=== PATIENT | male | born 1965 | race Caucasian/White ===

== ENCOUNTER 2020-02-20 09:54 | Inpatient (IN) | payer BC, SELFPAY ==
[2020-02-20] VITALS (7 sets, daily range): BP systolic 121–151; BP diastolic 81–110; PULSE 72–105; RESP 18–29; TEMP 36.1–37.2; O2SAT 94–99
--- NOTE | ~2020-02-20 | CT_ITS ---
EXAMINATION: CTA chest PE protocol DATE: 02/20/2020 12:16 CDT INDICATION: Shortness of breath. Pneumonia. TECHNIQUE: Computed tomographic angiography (CTA) of the chest was performed with 100 mL Omnipaque-35 0 intravenous contrast. The dose-length product was 583.93 mGy-cm. Maximum intensity projection 3D-re constructions of the aorta and other arteries were constructed by the technologist on a separate work station. Automated exposure control and iterative reconstruction technique were employed. COMPARISON: Chest x-ray dated 02/20/2020. FINDINGS: The study is technically adequate without evidence for pulmonary embolism. Calcified right hilar lymph nodes, consistent with chronic granulomatous infection. Heart size normal. No pleural or pericardial effusion. Borderline prevascular space lymph nodes measuring 7 mm short axis. Calcified g ranulomas in the lung parenchyma. Multifocal patchy groundglass opacification involving all lobes, compatible with pneumonia. The areas of opacification are not definitely seen on chest x-ray. No endobronchial lesions. IMPRESSION: 1. Multifocal regions of groundglass opacification in both lungs, compatible with pneumonia. 2: No evidence for pulmonary embolism. Reviewed, dictated and finalized at location B. IMPRESSION: 1. Multifocal regions of groundglass opacification in both lungs, compatible wi th pneumonia. 2: No evidence for pulmonary embolism.
--- NOTE | ~2020-02-20 | XR_ITS ---
XR chest 1V portable 02/20/2020 10:39 Indication: Shortness of breath and cough Procedure: AP portable chest Comparison: No prior studies for comparison. Findings: Heart size normal. Left basilar atelectasis. Crowding of the pulmonary vasculature due to l ow lung volumes. No pleural effusion, edema or pneumothorax. Impression: 1: Left basilar atelectasis. Reviewed, dictated and finalized at location B. Impression: 1: Left basilar atelectasis.
--- NOTE | 2020-02-20 10:02 | ED.GENADULT ---
HPI - General Adult General Chief complaint: Shortness of Breath/Dyspnea <MYRIAM Barreto - Last Filed: 02/20/20 13:25> Stated complaint: Covid +, SOB <MYRIAM Barreto - Last Filed: 02/20/20 13:25> Time Seen by Provider: 02/20/20 10:02 <MYRIAM Barreto - Last Filed: 02/20/20 13:25> Source: patient <MYRIAM Barreto - Last Filed: 02/20/20 13:25> Mode of arrival: ambulatory <MYRIAM Barreto - Last Filed: 02/20/20 13:25> Limitations: no limitations <MYRIAM Barreto - Last Filed: 02/20/20 13:25> History of Present Illness HPI narrative: 55-year-old male patient presents to the emergency department with complaints of shortness of breath and cough. Patient states that he had an exposure on February 01 after throwing a republican for his sons going away. Patient states about 14 people were tested and he tested positive the first time on February 05 for COVID-19. Patient states his symptoms started about February 10 with fever. Patient states he got tested again on February 13 and was positive again. Patient states he did not run any fever yesterday which was the first day he did not run any fever. Patient states he continues to have shortness of breath and a cough. Denies any abdominal pain. Patient states that when his symptoms first began February 10 he thought it might be diverticulitis and called his doctor and he was placed on antibiotics. Patient unknown of what the antibiotic was. Patient does have history of TIA and hypercholesterolemia. Patient states he takes a daily 81 mg baby aspirin for this. <MYRIAM Barreto - Last Filed: 02/20/20 13:25> Related Data Allergies/adverse reactions: Allergies Allergy/AdvReac Type Severity Reaction Status Date / Time No Known Allergies Allergy Unverified 10/27/13 10:50 <MYRIAM Barreto - Last Filed: 02/20/20 13:25> Review of Systems Review of Systems: Narrative: CONSTITUTIONAL: Denies fever, chills, positive sweats. EYES: Denies visual changes, redness, or discharge. ENT: Denies rhinorrhea, congestion, sore throat, or otalgia. CARDIOVASCULAR: Denies chest pain, palpitations, or edema. RESPIRATORY: Positive cough with dyspnea. GASTROINTESTINAL: Denies abdominal pain, nausea, vomiting, or diarrhea. GENITOURINARY: Denies dysuria or hematuria. SKIN: Denies rash or itching. MUSCULOSKELETAL: Denies back pain, joint pain, or myalgia. NEUROLOGIC: Denies headache, numbness, or weakness. PSYCHIATRIC: Denies anxiety or depression. <MYRIAM Barreto - Last Filed: 02/20/20 13:25> [facility] Past Medical History Medical History: Medical History (Updated 02/20/20 @ 12:58 by MYRIAM Barreto) CVA (cerebral vascular accident) 2016 Hypercholesterolemia <MYRIAM Barreto - Last Filed: 02/20/20 13:25> Social History Social History: Social History Smoking status: Never smoker Alcohol intake: current Gender identity (if verbalized by the patient): Male <MYRIAM Barreto - Last Filed: 02/20/20 13:25> Comments At the time of my signature I agree with nursing past medical history, surgical, social, and family history. There is no relevant family history pertinent to the presenting complaint. <MYRIAM Barreto - Last Filed: 02/20/20 13:25> Exam Narrative: Exam Narrative: GENERAL: Well-appearing, well-nourished, and in no acute distress. HEAD: Normocephalic, atraumatic. No tenderness noted to frontal maxillary sinuses on palpation EYES: PERRLA and EOMI. ENT: Nares clear, no rhinorrhea or epistaxis. Mucous membranes moist. NECK: Supple. No lymphadenopathy CHEST: Clear to auscultation. Patient does have slightly labored breathing but is also crying during exam. Patient does have cough noted during exam, nonproductive HEART: Regular rate and rhythm. No murmur heard. Normal peripheral pulses. ABDOMEN: Soft, nontender, nondistended, normal active bow
--- NOTE | 2020-02-20 10:04 | ECG_ITS ---
Measurements Intervals [place] Rate: 93 P: 36 UT: 143 QRS: 12 QRSD: 92 T: -15 QT: 331 QTc: 412 Interpretive Statements SINUS RHYTHM NONSPECIFIC ST-T WAVE ABNORMALITY- DIFFUSE LEADS BORDERLINE ECG Electronically Signed On 02-20-2020 12:11:46 CDT by Mike Ivory D.O.
[2020-02-20 10:33] LABS: Alveolar/Arterial O2 Gradient 81.2 mmHg; Base Excess ABG -1.9 mEq/l (+/-2.0); Fractional Inspired Oxygen 28 %; HCO3 ABG 19.3 mEq/l (22.0-26.0); Oxygen Content ABG 20.7 %vol (16.0-22.0); Oxygen Saturation ABG 97.6 % (95.0-100.0); Oxyhemoglobin 95.5 % THb (90.0-100.0); PO2 ABG 88.9 mmHg (80.0-100.0); PO2 FiO2 Ratio Arterial Blood 3.17 %; Total Hemoglobin 15.4 g/dL (12.0-18.0); pH ABG 7.505 (7.350-7.450)
[2020-02-20 10:34] LABS: Device NASAL CANNULA; Site Drawn RIGHT BRACHIAL
[2020-02-20 11:07] LABS: Basophils Percent Auto 0.2 % (0.2-1.2); Eosinophils Percent Auto 0.4 % (0-4.4); Hematocrit 43.5 % (42.0-52.0); Hemoglobin 14.8 g/dL (14.0-18.0); Immature Granulocyte Absolute 0.18 K/mm3 (0.00-0.031); Immature Granulocyte Percent A 1.9 % (0-0.5); Lymphocytes Absolute Auto 1.33 K/mm3 (0.9-3.2); Lymphocytes Percent Auto 14.1 % (18.3-44.2); Mean Corpuscular Volume 85.3 fl (80-100); Mean Platelet Volume 10.6 fl (7.4-10.4); Monocytes Absolute Auto 0.8 K/mm3 (0.1-0.6); Monocytes Percent Auto 8.9 % (2.6-8.5); Neutrophils Absolute Auto 7.1 K/mm3 (1.3-6.7); Neutrophils Percent Auto 74.5 % (45.5-73.1); Platelet Count Result 285 k/mm3 (150-375); Red Cell Distribution Width 13.4 % (11.5-14.5); White Blood Count 9.5 K/mm3 (4.5-10.0)
[2020-02-20 11:15] LABS: INR 1.1
[2020-02-20 11:16] LABS: Partial Thromboplastin Time 24.7 SECONDS (22.3-36.8)
[2020-02-20 11:18] LABS: D Dimer 1.36 ug/mL (<0.48)
[2020-02-20 11:19] LABS: Alanine Aminotransferase 20 U/L (4-50); Albumin Level 3.8 g/dL (3.5-5.1); Alkaline Phosphatase 116 U/L (38-126); Aspartate Amino Transferase 43 U/L (17-59); Bilirubin,Total 0.3 mg/dL (0.2-1.3); Blood Urea Nitrogen 23 mg/dL (9-20); Calcium 8.3 mg/dL (8.4-10.2); Carbon Dioxide 23 mmol/L (22-30); Chloride 103 mmol/L (98-107); Estimated CRCL calculation 79 ml/min; Estimated Glomerular Filt Rate > 60; Glucose 143 mg/dL (75-110); Potassium 3.3 mmol/L (3.4-5.0); Sodium 137 mmol/L (137-145)
[2020-02-20 11:20] LABS: Magnesium 2.7 mg/dL (1.6-2.3)
[2020-02-20 11:32] LABS: Troponin I < 0.012 ng/mL (0.000-0.034)
--- NOTE | 2020-02-20 12:10 | PC.NURSE ---
Right AC IV infiltrated at CT scan. IV removed by radiology technicians and new IV placed in Left AC
[2020-02-20 13:11] LABS: Add Urine Microscopic? YES; Appearance Urine Clear (Clear); Bacteria Urine Trace /hpf; Bilirubin Urine Negative (Negative); Blood Urine 1+ (Negative); Color Urine Yellow (Yellow); Glucose Urine UA Negative (Negative); Ketones Urine Negative (Negative); Leukocyte Esterase Ur Negative LEU/UL (Negative); Mucus Urine Rare /lpf; Nitrate Urine Negative (Negative); Protein Urine 1+ mg/dL (Negative); RBC Urine 0-2 /hpf (0-2); Squamous Epithelial Cell Urine Rare /hpf (Few); Urobilinogen Urine Negative mg/dL (<2.0)
[2020-02-20 13:14] LABS: Specific Grav Ur 1.039 (1.001-1.035)
[2020-02-20 13:24] LABS: CRP 7.7 mg/dL (<1.0)
--- NOTE | 2020-02-20 14:00 | PM.IMHP ---
H&P: HPI History of Present Illness Chief complaint: Shortness of breath. Narrative: Cole Nur is a 55-year-old male with history of stroke and hyperlipidemia presented to the emergency department earlier today from home with complaints of shortness of breath. He attended a going away libertarian for his son on February 01 and several days letter he was told that a person at the libertarian had tested positive for COVID-19. Since that time he and his have been in quarantine, and he was tested on February 05 although he was having no symptoms at that time. He began feeling poorly on February 10 and notes low-grade fever up to 100.4? as well as generalized GI upset and diarrhea. Initially he thought he was having a flare of diverticulitis, and he was started on antibiotics by his primary care provider, who also ordered a repeat COVID swab on February 13, which was also positive. He continued to have GI upset and reports having a ?bad taste in my mouth? so he stopped taking the antibiotics, thinking that was the cause. More recently he has had a nagging, nonproductive cough, progressive shortness of breath, weakness, and generalized malaise. He denies headache, sinus congestion, otalgia, odynophagia, vomiting, and dysuria. Review of Systems Review of Systems: Narrative: Twelve systems were reviewed with pertinent positives and negatives as per HPI. He had an occult stroke a couple of years back with mild residual left-sided weakness. No chest pain or pleuritic pain. He denies edema. Except as documented, all other systems were reviewed and are negative. [facility] Past Medical History Medical History (Updated 02/20/20 @ 19:13 by Elicia Krishnan PA-C) Anxiety Cerebrovascular accident (~2015) With mild residual left-sided weakness. Gastroesophageal reflux Hyperlipidemia Osteoarthritis of both shoulders Surgical History Surgical History (Updated 02/20/20 @ 19:06 by Elicia Krishnan PA-C) History of tonsillectomy (~1969) Family History Family History Father Acute myocardial infarction Diabetes mellitus Mother Diabetes mellitus Sibling Diabetes mellitus Sibling Diabetes mellitus Social History Social History (Updated 02/20/20 @ 19:15 by Elicia Krishnan PA-C) Social History: The patient lives in his own home in [place]. He has grown children. He works at a local [employer]. He is a lifelong nonsmoker. He drinks perhaps 1 alcoholic beverage a week. No illicit substance use. He designates his sister, Carolyn Mathis, as his surrogate decision maker and he wishes to be a full code. Spiritual care concerns: No Meds Home Medications and Allergies Home Medications Medication Instructions Recorded Confirmed Type aspirin [Aspirin Low Dose] 81 mg PO DAILY 02/20/20 02/20/20 History cetirizine [Zyrtec] 10 mg PO DAILY PRN 02/20/20 02/20/20 History lorazepam 0.5 mg PO DAILY PRN 02/20/20 02/20/20 History rosuvastatin 20 mg PO DAILY 02/20/20 02/20/20 History Allergies Allergy/AdvReac Type Severity Reaction Status Date / Time No Known Allergies Allergy Unverified 10/27/13 10:50 Vital Signs Vital Signs - 24 hr 02/20/20 10:15 02/20/20 12:53 02/20/20 13:39 Temperature 97.0 F L 98 F Pulse Rate 72 94 100 Respiratory Rate 29 H 21 H 20 Blood Pressure 151/100 H 146/99 H 140/98 H Pulse Oximetry 98 95 99 02/20/20 16:08 Temperature 98.9 F Pulse Rate 97 Respiratory Rate 18 Blood Pressure 137/110 H Pulse Oximetry 96 Exam Narrative: Exam Narrative: General: Mildly ill-appearing male in the semi-Snyder position in bed in no distress. He is nontoxic in appearance. HEENT: Pupils reactive. Extraocular motions intact. Oral mucosa tacky. Neck: Supple. Respiratory: Mildly tachypneic but speaking in full sentences. He coughs frequently throughout the interview. Coarse breath sounds heard bilaterally with faint expiratory wheezing. Cardiovascular
[2020-02-20 17:47] LABS: CRP 7.4 mg/dL (<1.0)
[2020-02-20] MEDS: SODIUM CHLORIDE 0.9% IV 1,000 ML 125 ML IV CONT (18:21)
--- NOTE | 2020-02-20 19:55 | ADMGEN ---
This patient, Cole Nur, was admitted to 3 [facility] Surg Room 327-01. Patient/family oriented to hospital policies and general routines including ID bracelet, bed and alarms, visiting hours, pain management, procedures, bathroom and other care routines, personal items, smoking policy, room service/diet, and visiting hours. Valuables list has been completed. Information on how to activate the Rapid Response Team has been discussed. Patient/Family are encouraged to report perceived risks to care and to ask questions if they do not understand what they are told or what they should do.
[2020-02-20] MEDS: POTASSIUM CHLORIDE 20 MEQ TABLET PO (21:14)
[2020-02-20] MEDS: LORazepam 0.5 MG TABLET PO (21:14)
[2020-02-20] MEDS: DEXAMETHASONE SOD PHOS INJ 4 MG/ML VIAL 6 MG IV PUSH (21:15)
[2020-02-20] MEDS: ROSUVASTATIN 10 MG TABLET 20 MG PO (21:15)
[2020-02-20] MEDS: ASPIRIN 81 MG ENTERIC TABLET PO (21:15)
[2020-02-20 21:49] LABS: Lactate Dehydrogenase 621 U/L (313-618); Potassium 3.1 mmol/L (3.4-5.0)
[2020-02-21 02:00] VITALS: BP 120/75; PULSE 80; RESP 20; TEMP 36.6; O2SAT 98
[2020-02-21 06:00] VITALS: BP 133/89; PULSE 67; RESP 20; TEMP 36.6; O2SAT 96
[2020-02-21 06:47] LABS: Basophils Percent Auto 0.4 % (0.2-1.2); Hematocrit 40.5 % (42.0-52.0); Hemoglobin 13.8 g/dL (14.0-18.0); Lymphocytes Absolute Auto 0.98 K/mm3 (0.9-3.2); Lymphocytes Percent Auto 14.5 % (18.3-44.2); Mean Corpuscular HGB Conc 34.1 g/dl (32-36); Mean Corpuscular Hemoglobin 29.1 pg (26-34); Mean Corpuscular Volume 85.4 fl (80-100); Mean Platelet Volume 10.6 fl (7.4-10.4); Monocytes Absolute Auto 0.3 K/mm3 (0.1-0.6); Monocytes Percent Auto 3.7 % (2.6-8.5); Neutrophils Absolute Auto 5.3 K/mm3 (1.3-6.7); Neutrophils Percent Auto 78.4 % (45.5-73.1); Platelet Count Result 296 k/mm3 (150-375); Red Blood Count 4.74 M/mm3 (4.6-6.20); Red Cell Distribution Width 13.2 % (11.5-14.5); White Blood Count 6.8 K/mm3 (4.5-10.0)
[2020-02-21 07:06] LABS: Alanine Aminotransferase 21 U/L (4-50); Albumin Level 3.6 g/dL (3.5-5.1); Alkaline Phosphatase 117 U/L (38-126); Aspartate Amino Transferase 44 U/L (17-59); Bilirubin,Total 0.3 mg/dL (0.2-1.3); Blood Urea Nitrogen 20 mg/dL (9-20); CRP 7.3 mg/dL (<1.0); Calcium 8.4 mg/dL (8.4-10.2); Carbon Dioxide 23 mmol/L (22-30); Chloride 105 mmol/L (98-107); Estimated CRCL calculation 87 ml/min; Estimated Glomerular Filt Rate > 60; Glucose 175 mg/dL (75-110); Lactate Dehydrogenase 603 U/L (313-618); Potassium 4.2 mmol/L (3.4-5.0); Sodium 137 mmol/L (137-145)
[2020-02-21 07:21] LABS: Giant Platelets Present; Large Platelets Present
[2020-02-21 07:23] LABS: Platelet Estimate Adequate (Adequate)
[2020-02-21 08:00] VITALS: PULSE 71
[2020-02-21] MEDS: ENOXAPARIN 40 MG/0.4 ML SYRINGE SUB-Q (08:03)
[2020-02-21 10:00] VITALS: BP 128/78; PULSE 71; RESP 18; TEMP 36.9; O2SAT 97
[2020-02-21 12:00] VITALS: PULSE 104
[2020-02-21 14:00] VITALS: BP 127/77; PULSE 70; RESP 18; TEMP 37.1; O2SAT 98
--- NOTE | 2020-02-21 14:13 | PM.DS ---
DS: Admitting Diagnosis Admitting Diagnosis Admitting Diagnosis: Pneumonia, unspecified organism DS: Discharge Diagnosis Discharge Diagnosis (1) Multifocal pneumonia: Code(s): J18.9 - Pneumonia, unspecified organism Status: Acute Assessment and Plan: As suggested on chest CTA. Suspect his pneumonia is secondary to COVID-19. Patient shows his results of COVID positive on 02/12 for me via his cell phone. I do not believe a bacterial co-infection is present as patient is afebrile and satting mid 90s on RA. Recommend mucinex and tylenol and proper oral intake for supportive care Will discharge today F/u with PCP Continue to isolate until further recommendations from PCP discontinue antibiotics (2) COVID-19: Code(s): U07.1 - COVID-19 Status: Acute Assessment and Plan: Patient reports testing positive on February 05 and February 12, patient showed me his results via his phone. At this time he has no oxygen requirement and his inflammatory markers only mildly elevated. Will d/c dexamethasone as he is not requiring oxygen at this time F/u with PCP (3) Hypokalemia: Code(s): E87.6 - Hypokalemia Status: Acute Assessment and Plan: K 4.2, improved F/u with PCP (4) Mild dehydration: Code(s): E86.0 - Dehydration Status: Acute Assessment and Plan: Patient appears euvolemic at this time IVF given during stay (5) Hyperlipidemia: Code(s): E78.5 - Hyperlipidemia, unspecified Status: Acute Assessment and Plan: Continue statin; LFTs within normal limits. (6) Anxiety: Code(s): F41.9 - Anxiety disorder, unspecified Status: Acute Assessment and Plan: Continue lorazepam 0.5 milligrams as needed. DS: Summary Hospital Course Reason for hospitalization: COVID infection/PNA Hospital Course: Patient is a 55 yo M with history of CVA and HLD who presented to the ER on 02/19 from home with complaints of SOB. Patient stated he had tested positive for COVID virus on February 05 and February 12. Symptoms started on 02/10 with fever. He was found to be afebrile with stable VS, satting in upper 90s on RA. Patient was admitted under observation status for COVID. Antibiotics were initiated by ED. Please see H&P for further details. Presenting VS: Temp Pulse Resp BP Pulse Ox 97.0 F L 94 29 H 151/100 H 98 02/20/20 10:15 02/20/20 10:15 02/20/20 10:15 02/20/20 10:15 02/20/20 10:15 Presenting Pertinent labs: D-dimer 1.36, K3.3, ferritin 317, LDH 621, CRP 7.7, troponin negative. ABG on 2L O2 NC showed pH of 7.505, pCO2 25, HCO3 19.3. CBC, coag, ABG, chemistry, UA otherwise unremarkable. Ur antigens pending at dictation Micro: UCx negative; BCx NGTD x 2 after 2 days Imaging: Chest X-Ray 02/20/20 10:41 Impression: 1: Left basilar atelectasis. Chest CTA 02/20/20 12:16 IMPRESSION: 1. Multifocal regions of groundglass opacification in both lungs, compatible with pneumonia. 2: No evidence for pulmonary embolism ECG: Interpretive Statements SINUS RHYTHM NONSPECIFIC ST-T WAVE ABNORMALITY- DIFFUSE LEADS BORDERLINE ECG Patient was admitted to the hospitalist service for further observation. Patient remained stable during stay, satting in 90s on RA throughout his stay and afebrile. Patient was continued, initially, on ceftriaxone and azithromycin, although these were discontinued as it was felt that bacterial co-infection was unlikely. Dexamethasone was initiated, but discontinued by day of discharge as patient was not hypoxic or requiring oxygen. Potassium was replaced and returned to within normal range at discharge. As above, CTA show
--- NOTE | 2020-02-21 16:29 | PCDIET ---
Nutrition Screen Complete: Seeing pt today due to MST score of 3 for wt loss and reduced appetite. Pt is covid + but d/c home due to no O2 needs and minimal inflammation. Dexamethasone is d/c. C reactive is 7.3. Pt states appetite is good. I encouraged pt to keep up with good fruit and veggie intake for vitamin C and increased time in the sun for additional vitamin D at this time.
[2020-02-24 16:48] LABS: Legionella pneumophila Ag Ur Not Detected (Not Detected)
[2020-02-24 22:21] LABS: Pneumococcal Antigen Urine Not Detected (Not Detected)
== END 2020-02-21 15:35 | disposition home or self-care (01) | DRG 177 ==
LOC: ANHED 12:58 → ANH3MEDSUR 18:47
PROVIDERS: Physician Assistant; Admitting Provider Internal Medicine; Emergency Provider Nurse Practitioner Family; PCP Internal Medicine; Visit Provider Physician Assistant
DX: U07.1 COVID-19 (principal); J12.89 Other viral pneumonia; I69.354 Hemiplegia and hemiparesis following cerebral infarction affecting left non-dominant side; E86.0 Dehydration; E87.6 Hypokalemia; E78.5 Hyperlipidemia, unspecified; F41.9 Anxiety disorder, unspecified; M19.012 Primary osteoarthritis, left shoulder; M19.011 Primary osteoarthritis, right shoulder; K21.9 Gastro-esophageal reflux disease without esophagitis; Z79.82 Long term (current) use of aspirin
CPT/HCPCS: 36415; 36600; 71045; 71275; 80053; 81001; 82728; 82805; 83615; 83735; 84132; 84484; 85025; 85380; 85610; 85730; 86140; 87040; 87086; 87449; 87899; 93005; 96365; 96367; 99285; A9270; J0456; J0696; J1100; J1650; J7030; Q9967

== ENCOUNTER 2024-04-14 10:51 | Inpatient (IN) | payer OTHER, SELFPAY ==
--- NOTE | ~2024-04-14 | CT_ITS ---
EXAMINATION: CT abdomen pelvis w con DATE: 04/14/2024 13:55 INDICATION: Diverticulitis TECHNIQUE: Computed tomography (CT) of the abdomen and pelvis was performed with 100 CC Omnipaque 350 intravenous contrast. Automated exposure control and iterative reconstruction technique were employe d. Exam dose: 541.54 mGy-cm total exam DLP. COMPARISON: None. FINDINGS: Bilateral calcified pulmonary granulomas consistent with old pulmonary granulomatous diseas e. No infiltrate or consolidation at the lung bases. Heart size is within normal range. No pericardial or pleural effusion. Focal fatty change of the liver adjacent to the fissure for the ligamentum teres. No hepatic space-oc cupying mass lesion. Normal splenic size. Calcified splenic granulomas. The gallbladder is unremarkable. No bile duct or pancreatic duct dilatation. No pancreatic calcificat ion or mass lesion. Normal morphology of the adrenal glands. No renal mass lesion or urinary tract calculus or hydroureteronephrosis. There is thickening of the sigmoid colon and adjacent pericolic fat stranding There are 2 abscesses, including a 3.5 x 3.8 cm abscess at the superior aspect of the sigmoid colon a nterior to L5-S1, bordered posteriorly by the left and right common iliac arteries, and another appro ximately 2 x 3 cm abscess along the anteroinferior aspect of the sigmoid colon adjacent to the urinar y bladder, with associated inflammatory thickening of the posterior bladder wall. Diverticulosis of sigmoid and descending colon. No bowel obstruction or intraperitoneal free air. Normal caliber and mild atherosclerotic calcification of the abdominal aorta. No intraperitoneal or r etroperitoneal or pelvic mass lesion or adenopathy or ascites is noted. Very small fat-containing umbilical hernia. Small fat-containing left inguinal hernia. Severe degenerative disc disease at L5-S1. No suspicious osteolytic or osteoblastic lesions are noted. IMPRESSION: Sigmoid diverticulitis with 2 pericolic abscesses Reviewed, dictated and finalized at [facility]. Reviewed, dictated and finalized at [facility].
--- NOTE | ~2024-04-14 | CT_ITS ---
EXAMINATION: CT abdomen pelvis w con DATE: 04/19/2024 09:47 INDICATION: Sigmoid diverticulitis with abscess. TECHNIQUE: Computed tomography (CT) of the abdomen and pelvis was performed with 100 mL Omnipaque 350 intravenous contrast. Automated exposure control and iterative reconstruction technique were employe d. The dose-length product was 471.31 mGy-cm. COMPARISON: CT abdomen and pelvis 04/14/2024 FINDINGS: The visualized portions of the lung bases demonstrate mild atelectasis. Calcified pulmonary nodules and calcified right hilar and mediastinal lymph nodes are consistent with old granulomatous disease. No pleural effusion. The heart size is normal. There are coronary artery calcifications. No pericardial effusion. The liver demonstrates focal steatosis adjacent to the falciform ligament. The spleen is normal. The gallbladder is distended, likely secondary to fasting. The pancreas and adrenal glands are normal. There is a 3 mm stone in right kidney. There is mild left hydronephrosis and hydr oureter. There are scattered diverticula in the colon. There is wall thickening of the sigmoid colon. The appendix is normal. There is a 2.1 x 0.8 x 3.7 cm abscess abutting the sigmoid colon and bladder . There is a 4.7 x 2.1 x 2.9 cm abscess superior to the sigmoid colon abutting the common iliac arter ies. There are no pathologically enlarged lymph nodes. There is no free intraperitoneal fluid. There is moderate thoracic spondylosis. There is severe lower lumbar spondylosis. IMPRESSION: 1. Sigmoid diverticulitis with two perisigmoid abscesses with mild improvement. Reviewed, dictated and finalized at location [facility].
[2024-04-14 10:55] VITALS: BP 129/104; PULSE 96; RESP 17; TEMP 36.8; O2SAT 98
[2024-04-14 11:17] VITALS: BP 123/85; PULSE 94; RESP 18; O2SAT 97
[2024-04-14 11:32] LABS: Basophils Absolute Auto 0.1 K/mm3 (0.0-0.1); Basophils Percent Auto 0.8 % (0.2-1.2); Eosinophils Absolute Auto 0.3 K/mm3 (0-0.3); Eosinophils Percent Auto 3.4 % (0-4.4); Hematocrit 42.3 % (42.0-52.0); Hemoglobin 13.8 g/dL (14.0-18.0); Immature Granulocyte Absolute 0.07 K/mm3 (0.00-0.031); Immature Granulocyte Percent A 0.8 % (0-0.5); Lymphocytes Absolute Auto 2.07 K/mm3 (0.9-3.2); Lymphocytes Percent Auto 22.2 % (18.3-44.2); Mean Corpuscular HGB Conc 32.6 g/dl (32-36); Mean Corpuscular Hemoglobin 29.1 pg (26-34); Mean Corpuscular Volume 89.2 fl (80-100); Mean Platelet Volume 10.1 fl (7.4-10.4); Monocytes Absolute Auto 0.7 K/mm3 (0.1-0.6); Monocytes Percent Auto 7.4 % (2.6-8.5); Neutrophils Absolute Auto 6.1 K/mm3 (1.3-6.7); Neutrophils Percent Auto 65.4 % (45.5-73.1); Platelet Count Result 366 k/mm3 (150-375); Red Blood Count 4.74 M/mm3 (4.6-6.20); Red Cell Distribution Width 13.2 % (11.5-14.5); White Blood Count 9.3 K/mm3 (4.5-10.0)
--- NOTE | 2024-04-14 11:34 | ED.ABDPAIN ---
HPI - Abdominal Pain General Chief Complaint: Abdominal Pain Stated Complaint: abdominal pain Time Seen by Provider: 04/14/24 11:11 Source: patient Mode of arrival: ambulatory Limitations: no limitations History of Present Illness HPI narrative: Patient presents with concern for diverticulitis. He has been having abdominal pain 5 weeks associated with constipation. He saw his primary care physician With he for this and was initially prescribed Senokot followed by the addition of MiraLax. He continued to have issues and was then referred to a surgeon through [place] Dr. Nicole. This physician ordered a CT scan which was performed yesterday. He was called by the radiologist/Radiology member service representative this morning and his voicemail transcribed suggests that there was inflammation concerning for diverticulitis with possible abscess. He has a history of diverticulitis 2 prior flares. His last colonoscopy was performed when he was approximately 50-52 years old and reportedly normal (performed by GI at [facility]) though he does have a family history of his paternal grandfather of colon cancer. He is not on anticoagulation other than taking a Amadeo aspirin with his last dose being last night. His last oral intake was this morning in the form of an Ensure shake. He has a history of CVA with no deficits. He has been taking Excedrin, ibuprofen, and Aleve for pain relief. Has not been initiated on antibiotics yet as he just received a phone call. His pain is in the right lower quadrant and left lower quadrant. She did not want to go to [place] for this issue which is why he presented here because he thought the records would be available easily. He has been having subjective fevers and chills. For example, heaves his home temperature at 77? F and despite this he still felt cold. With the bowel regimen he had been having scant bowel movements recently however his last bowel movement was yesterday and it was a large volume of liquid but he states that with that he felt a sudden relief of all of the abdominal pressure he had been experiencing up to this point. Related Data Home Medications Medication Instructions Recorded Confirmed aspirin 81 mg tablet,delayed 81 mg PO DAILY 02/20/20 04/14/24 release (Petra Low Dose Aspirin) cetirizine 10 mg tablet (Zyrtec) 10 mg PO DAILY PRN Allergy Symptoms 02/20/20 04/14/24 rosuvastatin 20 mg tablet 20 mg PO DAILY 02/20/20 04/14/24 empagliflozin 25 mg tablet 25 mg PO DAILY 04/14/24 04/14/24 (Jardiance) lisinopril 10 mg tablet 10 mg PO DAILY 04/14/24 04/14/24 Allergies Allergy/AdvReac Type Severity Reaction Status Date / Time No Known Allergies Allergy Verified 04/14/24 11:17 [facility] Past Medical History Medical History (Updated 04/14/24 @ 23:00 by Elicia Krishnan PA-C) Anxiety Cerebrovascular accident (~2015) With mild residual left-sided weakness. Diverticulitis 3 total flares Gastroesophageal reflux Hyperlipidemia Osteoarthritis of both shoulders Type 2 diabetes mellitus Surgical History Surgical History History of tonsillectomy (~1969) Family History Family History Father Acute myocardial infarction Diabetes mellitus Mother Diabetes mellitus Sibling Diabetes mellitus Sibling Diabetes mellitus Grandparent Colon cancer Social History Social History (Updated 04/14/24 @ 22:58 by Elicia Krishnan PA-C) Social History: Surrogate medical decision maker: Carolyn Mathis, sibling. Code status: Full code. Smoking status: Never smoker Alcohol intake: current Drinks per week: 1 Substance use: never Do You Feel Safe in your Home?: Yes Lack of Transportation: No Lack of Food: Never True Current Housing: I Have Housing Concerned About Future Housing: No Difficulty Paying Gas/Electric Bills: No Difficulty Paying for Meds
[2024-04-14 11:38] LABS: Lactic Acid Reflex 1.1 mmol/L (0.7-2.0)
[2024-04-14 11:42] LABS: Alanine Aminotransferase 13 U/L (6-50); Albumin Level 3.9 g/dL (3.5-5.1); Alkaline Phosphatase 146 U/L (38-126); Anion Gap 12 mmol/L (4-12); Aspartate Amino Transferase 35 U/L (17-59); Bilirubin,Total 0.6 mg/dL (0.2-1.3); Blood Urea Nitrogen 13 mg/dL (9-20); Calcium 8.9 mg/dL (8.4-10.2); Carbon Dioxide 22 mmol/L (22-30); Chloride 105 mmol/L (98-107); Estimated CRCL calculation 83 ml/min; Estimated Glomerular Filt Rate > 60; Glucose 171 mg/dL (65-110); Lipase 106 U/L (23-300); Potassium 3.8 mmol/L (3.4-5.0); Sodium 139 mmol/L (137-145)
[2024-04-14 11:55] LABS: Add Urine Microscopic? YES; Appearance Urine Cloudy (Clear); Bacteria Urine None Seen /hpf; Bilirubin Urine Negative (Negative); Blood Urine Negative (Negative); Color Urine Yellow (Yellow); Glucose Urine UA 3+ mg/dL (Negative); Ketones Urine Trace mg/dL (Negative); Leukocyte Esterase Ur Negative LEU/UL (Negative); Nitrate Urine Negative (Negative); Non Pathogenic Casts 0-2; Protein Urine Trace mg/dL (Negative); RBC Urine 0-2 /hpf (0-2); Specific Grav Ur 1.038 (1.001-1.035); Squamous Epithelial Cell Urine None Seen /hpf (Few); Urobilinogen Urine 0.2 mg/dL (<2.0); WBC Urine 0-5 /hpf (0-3)
[2024-04-14 11:58] LABS: Magnesium 2.3 mg/dL (1.6-2.3)
[2024-04-14] MEDS: SODIUM CHLORIDE 0.9% IV 1,000 ML 999 ML IV CONT (12:16)
[2024-04-14] MEDS: HYDROmorphone HCL INJ (*CRX) 1 MG/ML SYR 0.5 MG IV PUSH (12:16)
[2024-04-14 14:02] VITALS: BP 132/93; PULSE 69; RESP 15; O2SAT 98
[2024-04-14] MEDS: PIPERACILLIN/TAZ 4.5G/NS 100ML 4.5 GM/100 ML BAG IVPB (14:27)
--- NOTE | 2024-04-14 15:08 | PM.IMHP ---
H&P: HPI History of Present Illness Date/Time: 04/14/24 15:08 Chief Complaint: Lower abdominal pain Narrative: Patient has had right lower quadrant abdominal pain and constipation for about 5 weeks. He saw his primary care physician and tried some laxatives. These were not affective. He saw a surgeon at [facility] who ordered a CT scan of the abdomen and pelvis. This was done yesterday. He was told this morning that this showed diverticulitis with an abscess. We have had trouble getting reports or the films from [facility]. A repeat CT scan of the abdomen pelvis was done in our emergency room when he came there today. This shows diverticulitis with 2 small abscesses. Patient reports he has had 2 other episodes of diverticulitis, the last 1 was about 3 years ago. Neither of these were complicated. Neither required admission to the hospital. He last had a colonoscopy about 8 years ago and recalls that it was negative-no polyps or other lesions. He was seen in the emergency room and is now admitted for treatment of acute diverticulitis with abscess. Patient is a diabetic and takes will go Wegovy. He does not follow a diabetic diet but is blood sugars tend to be in the 100s. He only checks his blood sugars once in a while. He did have a stroke about 4 years ago but it resolved without any residual defect. He tells me the stroke was from a clot but was not on any blood thinner. He does take aspirin 81 mg daily. Review of Systems Review of Systems: All systems reviewed & are unremarkable except as noted in HPI and below (HPI and those items noted below) Constitutional: Constitutional: Denies chills and Denies fever(s) Cardiovascular: Cardiovascular: Denies chest pain, Denies diaphoresis, Denies dyspnea and Denies paroxysmal nocturnal dyspnea Respiratory: Respiratory: Denies chest congestion, Denies cough and Denies dyspnea Integumentary/Breasts: Skin/Breast: Denies lesions and Denies rash [facility] Past Medical History Medical History (Updated 04/14/24 @ 15:19 by Rashaad Murray MD) Anxiety Cerebrovascular accident (~2015) With mild residual left-sided weakness. Diverticulitis 3 total flares Gastroesophageal reflux Hyperlipidemia Osteoarthritis of both shoulders Surgical History Surgical History History of tonsillectomy (~1969) Family History Family History Father Acute myocardial infarction Diabetes mellitus Mother Diabetes mellitus Sibling Diabetes mellitus Sibling Diabetes mellitus Grandparent Colon cancer Social History Social History Social History: The patient lives in his own home in [place]. He has grown children. He works at a local [employer]. He is a lifelong nonsmoker. He drinks perhaps 1 alcoholic beverage a week. No illicit substance use. He designates his sister, Carolyn Mathis, as his surrogate decision maker and he wishes to be a full code. Spiritual care concerns: No Meds Home Medications and Allergies Home Medications Medication Instructions Recorded Confirmed Type aspirin 81 mg tablet,delayed 81 mg PO DAILY 02/20/20 02/20/20 History release (Petra Low Dose Aspirin) cetirizine 10 mg tablet (Zyrtec) 10 mg PO DAILY PRN Allergy Symptoms 02/20/20 02/20/20 History lorazepam 0.5 mg tablet 0.5 mg PO DAILY PRN Anxiety 02/20/20 02/20/20 History rosuvastatin 20 mg tablet 20 mg PO DAILY 02/20/20 02/20/20 History acetaminophen 325 mg tablet (Mapap 650 mg PO Q6H PRN Mild Pain (1-3) 02/21/20 Rx (acetaminophen)) Or Fever #0 tabs albuterol sulfate 90 mcg/actuation 2 puff inhalation QIDRT PRN 02/21/20 Rx aerosol inhaler (Proventil HFA) Shortness Of Breath #8 grams dextromethorphan-guaifenesin 30 1 tab PO Q12HR PRN cough #0 tabs 02/21/20 Rx mg-600 mg tablet extended [id number] hr (Mucinex DM) Hansel
--- NOTE | 2024-04-14 15:45 | PC.NURSE ---
attempted to call report at this time but the nurse was unavailable and was told she will call back when she can
--- NOTE | 2024-04-14 16:30 | WPDCN ---
Assessment and Plan Assessment and plan (1) Diverticulitis of large intestine with abscess without bleeding: Code(s): K57.20 - Diverticulitis of large intestine with perforation and abscess without bleeding Status: Acute Assessment and Plan: CT shows diverticulitis with [address] Murray recommends IV antibiotics with serial abdominal exams. Analgesics and antiemetics are available as needed. (2) Mild dehydration: Code(s): E86.0 - Dehydration Status: Inactive Assessment and Plan: He looks dry on exam and by labs. Continue IV fluids overnight. (3) Type 2 diabetes mellitus: Code(s): E11.9 - Type 2 diabetes mellitus without complications Status: Acute Assessment and Plan: Hold empagliflozin while and p.o.. Initiate sliding scale insulin, Accu-Cheks, and hypoglycemic protocol. Check hemoglobin A1c. Plan Thank you for allowing us to participate in this patient's care. Please do not hesitate to contact us with any questions. HPI Data of Consult Date/Time: 04/14/24 16:45 Requesting Physician: Rashaad Murray MD Consult Narrative Reason for consult: Medical management. Narrative: This is a pleasant 59-year-old male with history of diverticulitis, stroke, type 2 diabetes mellitus, and hyperlipidemia who presented to the emergency department earlier today for evaluation of right lower quadrant abdominal pain and feelings of constipation for about 5 weeks. The last 4 days his symptoms have been worse with pain, decreased appetite, and chills. He saw primary care physician and was referred to a surgeon at [facility] earlier this week due to suspicions for recurrent diverticulitis. CT scan of the abdomen and pelvis done yesterday reportedly showed diverticulitis with abscess and he was told to come to the ED. He was given Zosyn 4.5 g and was admitted to the medical floor under the surgical service for further treatment. The hospitalist service has been consulted in this setting for help managing his medical conditions. He has not had a documented fever and denies vomiting and blood and mucus in the stool. Regarding his chronic medical conditions, he believes they are well controlled on medication. He checks his fasting glucose couple of times a week and it is usually between 120 and 130. He has not had any significant lows or highs. Review of Systems Review of Systems: 12 systems were reviewed and are negative except for as per HPI. FOR[facility]LY [facility] Past Medical History Medical History (Updated 04/14/24 @ 23:00 by Elicia Krishnan PA-C) Anxiety Cerebrovascular accident (~2015) With mild residual left-sided weakness. Diverticulitis 3 total flares Gastroesophageal reflux Hyperlipidemia Osteoarthritis of both shoulders Type 2 diabetes mellitus Surgical History Surgical History History of tonsillectomy (~1970) Family History Family History Father Acute myocardial infarction Diabetes mellitus Mother Diabetes mellitus Sibling Diabetes mellitus Sibling Diabetes mellitus Grandparent Colon cancer Social History Social History (Updated 04/14/24 @ 22:58 by Elicia Krishnan PA-C) Social History: Surrogate medical decision maker: Carolyn Mathis, sibling. Code status: Full code. Smoking status: Never smoker Alcohol intake: current Drinks per week: 1 Substance use: never Do You Feel Safe in your Home?: Yes Lack of Transportation: No Lack of Food: Never True Current Housing: I Have Housing Concerned About Future Housing: No Difficulty Paying Gas/Electric Bills: No Difficulty Paying for Meds: No Currently Unemployed: No Education: Associate Degree Difficulty w/ Childcare or Family Care: No Additional living arrangements comments: Lives alone. Has
[2024-04-14 16:40] VITALS: BP 123/78; PULSE 84; RESP 20; TEMP 35.6; O2SAT 100
[2024-04-14] MEDS: LACTATED RINGERS 1,000 ML 125 ML IV CONT (16:51)
[2024-04-14] MEDS: MORPHINE SULFATE (*CRX) 2 MG/ML INJ IV PUSH (16:52)
[2024-04-14] MEDS: IBUPROFEN IV 800 MG/200 ML 800 MG/200 ML BAG 400 MG IVPB (16:54)
[2024-04-14 17:07] VITALS: BMI 24.9
--- NOTE | 2024-04-14 17:19 | ADMGEN ---
This patient, Cole Nur, was admitted to 3 [facility] Surg Room 324-01. Patient/family oriented to hospital policies and general routines including ID bracelet, bed and alarms, visiting hours, pain management, procedures, bathroom and other care routines, personal items, smoking policy, room service/diet, and visiting hours. Information on how to activate the Rapid Response Team has been discussed. Patient/Family are encouraged to report perceived risks to care and to ask questions if they do not understand what they are told or what they should do.
[2024-04-14 17:27] LABS: Hemoglobin A1C 6.5 % (<5.7)
[2024-04-14] MEDS: ENOXAPARIN 40 MG/0.4 ML SYRINGE SUB-Q (17:46)
[2024-04-14] MEDS: PIPERACILLN/TAZ 3.375GM/NS50ML 3.375 GM/50 ML BAG IVPB (19:24)
[2024-04-14 20:41] VITALS: BP 128/81; PULSE 60; RESP 16; TEMP 37.2; O2SAT 99
[2024-04-14 20:41] LABS: Glucose Point of Care 84 mg/dl (65-105)
[2024-04-14] MEDS: FAMOTIDINE 20 MG/2 ML VIAL IV PUSH (20:56)
[2024-04-15] MEDS: MORPHINE SULFATE (*CRX) 2 MG/ML INJ IV PUSH (01:09)
[2024-04-15] MEDS: PIPERACILLN/TAZ 3.375GM/NS50ML 3.375 GM/50 ML BAG IVPB ×4 (01:10→17:17)
[2024-04-15] MEDS: LACTATED RINGERS 1,000 ML 125 ML IV CONT ×2 (01:14→05:39)
[2024-04-15] MEDS: MORPHINE SULFATE (*CRX) 4 MG/ML INJ IV PUSH ×2 (04:01→09:02)
[2024-04-15 06:00] VITALS: BP 128/79; PULSE 59; RESP 18; TEMP 36.9; O2SAT 97
[2024-04-15 06:08] LABS: Basophils Absolute Auto 0.1 K/mm3 (0.0-0.1); Basophils Percent Auto 0.9 % (0.2-1.2); Eosinophils Absolute Auto 0.3 K/mm3 (0-0.3); Eosinophils Percent Auto 4.4 % (0-4.4); Hematocrit 37.8 % (42.0-52.0); Immature Granulocyte Absolute 0.04 K/mm3 (0.00-0.031); Immature Granulocyte Percent A 0.5 % (0-0.5); Lymphocytes Absolute Auto 2.37 K/mm3 (0.9-3.2); Lymphocytes Percent Auto 30.6 % (18.3-44.2); Mean Corpuscular HGB Conc 31.7 g/dl (32-36); Mean Corpuscular Hemoglobin 29.2 pg (26-34); Mean Platelet Volume 9.6 fl (7.4-10.4); Monocytes Absolute Auto 0.7 K/mm3 (0.1-0.6); Monocytes Percent Auto 8.8 % (2.6-8.5); Neutrophils Absolute Auto 4.3 K/mm3 (1.3-6.7); Neutrophils Percent Auto 54.8 % (45.5-73.1); Platelet Count Result 302 k/mm3 (150-375); Red Blood Count 4.11 M/mm3 (4.6-6.20); Red Cell Distribution Width 13.4 % (11.5-14.5); White Blood Count 7.8 K/mm3 (4.5-10.0)
[2024-04-15 06:18] LABS: Anion Gap 8 mmol/L (4-12); Blood Urea Nitrogen 12 mg/dL (9-20); Calcium 8.5 mg/dL (8.4-10.2); Carbon Dioxide 25 mmol/L (22-30); Chloride 106 mmol/L (98-107); Estimated CRCL calculation 83 ml/min; Estimated Glomerular Filt Rate > 60; Glucose 82 mg/dL (65-110); Potassium 3.7 mmol/L (3.4-5.0); Sodium 139 mmol/L (137-145)
[2024-04-15 06:30] LABS: Glucose Point of Care 73 mg/dl (65-105)
[2024-04-15] MEDS: FAMOTIDINE 20 MG/2 ML VIAL IV PUSH ×2 (09:02→21:14)
[2024-04-15] MEDS: ENOXAPARIN 40 MG/0.4 ML SYRINGE SUB-Q (09:02)
--- NOTE | 2024-04-15 10:17 | PM.IMPN ---
Progress Note: A&P Assessment and Plan (1) Diverticulitis of large intestine with abscess without bleeding: Code(s): K57.20 - Diverticulitis of large intestine with perforation and abscess without bleeding Status: Acute Assessment and Plan: CT shows diverticulitis with [address] Murray recommends IV antibiotics with serial abdominal exams. Analgesics and antiemetics are available as needed. (2) Mild dehydration: Code(s): E86.0 - Dehydration Status: Inactive Assessment and Plan: He looks dry on exam and by labs. Continue IV fluids overnight. (3) Type 2 diabetes mellitus: Code(s): E11.9 - Type 2 diabetes mellitus without complications Status: Acute Assessment and Plan: Hold empagliflozin while and p.o.. Initiate sliding scale insulin, Accu-Cheks, and hypoglycemic protocol. Check hemoglobin A1c. Plan Thank you for allowing us to participate in this patient's care. Please do not hesitate to contact us with any questions. Subjective Date/time seen: 04/15/24 10:17 Review of Systems Review of Systems: 12 systems were reviewed and are negative except for as per HPI. Exam Narrative: General: Mildly ill-appearing gentleman in the semi-Snyder position in bed. Weight: 80.1 kg. BMI: 24.9. HEENT: PERRL, EOMI. Sclera anicteric. Tacky mucous membranes. Neck: Supple. Respiratory: Lungs are clear to auscultation bilaterally. Cardiovascular: Regular rate and rhythm with S1-S2. Gastrointestinal: Abdomen is soft and nondistended with positive bowel sounds. He is tender to palpation, mainly throughout the lower abdomen. No guarding or rebound tenderness. Skin: Warm and dry. No rash or lesions on limited exam. Extremities: No cyanosis, clubbing, or edema. Radial and pedal pulses intact. Neurological: Alert. Cranial nerves 2-12 are grossly intact. No gross focal deficits to casual conversation. Psychiatric: Pleasant and cooperative with normal mood and affect. Judgment and insight intact. Objective Data Vital Signs Vital Signs: Vital Signs - 24 hr 04/14/24 10:55 04/14/24 11:17 04/14/24 14:02 Temperature 98.2 F Pulse Rate 96 94 69 Respiratory Rate 17 18 15 Blood Pressure 129/104 H 123/85 132/93 H Pulse Oximetry 98 97 98 Oxygen Delivery Room Air 04/14/24 16:40 04/14/24 20:41 04/14/24 20:00 Temperature 96.0 F L 99.0 F Pulse Rate 84 60 Respiratory Rate 20 16 Blood Pressure 123/78 128/81 Pulse Oximetry 100 99 Oxygen Delivery Room Air 04/15/24 06:00 Temperature 98.4 F Pulse Rate 59 L Respiratory Rate 18 Blood Pressure 128/79 Pulse Oximetry 97 Oxygen Delivery Intake/Output Intake/Output: Intake & Output 04/12/24 04/13/24 04/14/24 04/15/24 23:59 23:59 23:59 23:59 Intake Total 1350 1952.1 Balance 1350 1952.1 Meds/Results Medications: Active Medications Generic Name Dose Route Start Last Admin Trade Name Freq PRN Reason Stop Dose Admin Dextrose 12.5 gm 04/14/24 16:42 Dextrose 50% 25 Gm/50 Ml Syringe IV PUSH PRN PRN Hypoglycemia Protocol Enoxaparin Sodium 40 mg 04/15/24 09:00 04/15/24 09:02 Enoxaparin 40 Mg/0.4 Ml Syringe SUB-Q 40 mg DAILY KAJAL Administration Famotidine 20 mg 04/14/24 21:00 04/15/24 09:02 Famotidine 20 Mg/2 Ml Vial IV PUSH 20 mg Q12HR KAJAL Administration Glucagon 1 mg 04/14/24 16:42 Glucagon For Inj 1 Mg Vial IM PRN PRN Hypoglycemia Protocol Glucose 15 gm 04/14/24 16:42 Glucose Oral Gel 15 Gm Of Glucse In 37.5 Gm Tube PO PRN PRN Hypoglycemia Protocol Lactated Ringer's 1,000 mls @ 125 mls/hr 04/14/24 14:40 04/15/24 05:39 Lr - Lactated Ringers Iv IV CONT 125 mls/hr .Q8H KAJAL Administration Piperacillin/Tazobactam/Dextrose 3.375 gm in 50 mls @ 100 mls/hr 04/14/24 19:00 04/15/24 05:39 Zosyn 3.375 Gm/Ns 50 Ml IVPB 100 mls/hr Q6HR KAJAL Administra
[2024-04-15 12:07] LABS: Glucose Point of Care 61 mg/dl (65-105)
[2024-04-15] MEDS: DEXTROSE 5% 1,000 ML 1,000 ML 100 ML IVPB (12:08)
--- NOTE | 2024-04-15 12:34 | PM.IMCN ---
Assessment and Plan Assessment and plan (1) Diverticulitis of large intestine with abscess without bleeding: Code(s): K57.20 - Diverticulitis of large intestine with perforation and abscess without bleeding Status: Acute Assessment and Plan: CT shows diverticulitis with [address] Murray recommends IV antibiotics with serial abdominal exams. Analgesics and antiemetics are available as needed. (2) Mild dehydration: Code(s): E86.0 - Dehydration Status: Inactive Assessment and Plan: IV fluids (3) Type 2 diabetes mellitus: Code(s): E11.9 - Type 2 diabetes mellitus without complications Status: Acute Assessment and Plan: Hold empagliflozin and mounjaro Initiate sliding scale insulin, Accu-Cheks, and hypoglycemic protocol. Check hemoglobin A1c- 6.5- well controlled will add d5LR while NPO as on Mounjaro and since NPO-will need to avoid hypoglycemia HPI Date of Consult Consult date: 04/15/24 Requesting Physician: Rashaad Murray MD Primary Care Provider: Kvng Snow Consult Narrative Reason for consult: Medical management. Narrative: Narrative: This is a pleasant 59-year-old male with history of diverticulitis, stroke, type 2 diabetes mellitus, and hyperlipidemia who presented to the emergency department earlier today for evaluation of right lower quadrant abdominal pain and feelings of constipation for about 5 weeks. The last 4 days his symptoms have been worse with pain, decreased appetite, and chills. He saw primary care physician and was referred to a surgeon at [facility] earlier this week due to suspicions for recurrent diverticulitis. CT scan of the abdomen and pelvis done yesterday reportedly showed diverticulitis with abscess and he was told to come to the ED. He was given Zosyn 4.5 g and was admitted to the medical floor under the surgical service for further treatment. The hospitalist service has been consulted in this setting for help managing his medical conditions. He has not had a documented fever and denies vomiting and blood and mucus in the stool. Regarding his chronic medical conditions, he believes they are well controlled on medication. He checks his fasting glucose couple of times a week and it is usually between 120 and 130. He has not had any significant lows or highs. 04/15- seen and examined. he reports that he is on jardiance and mounjaro and tolerating both meds well. Denies any issues this am- no n/v/d. Review of Systems Review of Systems: All systems reviewed & are unremarkable except as noted in HPI and below (HPI and those items noted below) Constitutional: Constitutional: Denies chills and Denies fever(s) Cardiovascular: Cardiovascular: Denies chest pain, Denies diaphoresis, Denies dyspnea and Denies paroxysmal nocturnal dyspnea Respiratory: Respiratory: Denies chest congestion, Denies cough and Denies dyspnea Integumentary/Breasts: Skin/Breast: Denies lesions and Denies rash [facility] Past Medical History Medical History (Updated 04/14/24 @ 23:00 by Elicia Krishnan PA-C) Anxiety Cerebrovascular accident (~2015) With mild residual left-sided weakness. Diverticulitis 3 total flares Gastroesophageal reflux Hyperlipidemia Osteoarthritis of both shoulders Type 2 diabetes mellitus Surgical History Surgical History History of tonsillectomy (~1970) Family History Family History Father Acute myocardial infarction Diabetes mellitus Mother Diabetes mellitus Sibling Diabetes mellitus Sibling Diabetes mellitus Grandparent Colon cancer Social History Social History (Updated 04/14/24 @ 22:58 by Elicia Krishnan PA-C) Social History: Surrogate medical decision maker: Carolyn Mathis, sibling. Code status: Full code. Smoking status: Never smok
--- NOTE | 2024-04-15 12:41 | PM.PNGS ---
Progress Note: A&P Assessment and Plan (1) Diverticulitis of large intestine with abscess without bleeding: Code(s): K57.20 - Diverticulitis of large intestine with perforation and abscess without bleeding Status: Acute Assessment and Plan: Improving. I will change IV ibuprofen to q.6 hours scheduled dose. Hopefully, this will reduce his need for narcotics. Recheck labs and exam again tomorrow. If right lower quadrant pain not improving, may need repeat CT scan. Subjective Subjective Date/Time Seen: 04/15/24 12:41 Patient reports: feels better, still having pain (Mostly right lower quadrant), voiding w/o difficulty, flatus, bowel movement (Small, liquid), blood in stool and afebrile Exam Const: General: comfortable and no acute distress Orientation/consciousness: patient oriented x3 GI: Inspection: normal to inspection and non-distended GI Palp: Yes Soft to palpation, Yes Tenderness to palpation present (GI) (Right lower quadrant, suprapubic and left lower quadrant improved), No Guarding due to palpation present (GI) and No Rebound tenderness present Auscultation: normal bowel sounds Neuro: General: patient oriented x3 and no focal motor deficits Extrem: General: no calf tenderness and no edema Psych: Affect: normal affect Insight: Good insight present (Psych) Judgement: Good judgement present (Psych) Objective Data Vital Signs Vital Signs: Vital Signs - 24 hr 04/14/24 14:02 04/14/24 16:40 04/14/24 20:41 Temperature 35.6 C L 37.2 C Pulse Rate 69 84 60 Respiratory Rate 15 20 16 Blood Pressure 132/93 H 123/78 128/81 Pulse Oximetry 98 100 99 Oxygen Delivery 04/14/24 20:00 04/15/24 06:00 Temperature 36.9 C Pulse Rate 59 L Respiratory Rate 18 Blood Pressure 128/79 Pulse Oximetry 97 Oxygen Delivery Room Air Intake/Output Intake/Output: Intake & Output 04/12/24 04/13/24 04/14/24 04/15/24 23:59 23:59 23:59 23:59 Intake Total 1350 2001.1 Balance 1350 2001.1 Meds/Results Medications: Active Medications Generic Name Dose Route Start Last Admin Trade Name Freq PRN Reason Stop Dose Admin Dextrose 12.5 gm 04/14/24 16:42 Dextrose 50% 25 Gm/50 Ml Syringe IV PUSH PRN PRN Hypoglycemia Protocol Enoxaparin Sodium 40 mg 04/15/24 09:00 04/15/24 09:02 Enoxaparin 40 Mg/0.4 Ml Syringe SUB-Q 40 mg DAILY KAJAL Administration Famotidine 20 mg 04/14/24 21:00 04/15/24 09:02 Famotidine 20 Mg/2 Ml Vial IV PUSH 20 mg Q12HR KAJAL Administration Glucagon 1 mg 04/14/24 16:42 Glucagon For Inj 1 Mg Vial IM PRN PRN Hypoglycemia Protocol Glucose 15 gm 04/14/24 16:42 Glucose Oral Gel 15 Gm Of Glucse In 37.5 Gm Tube PO PRN PRN Hypoglycemia Protocol Piperacillin/Tazobactam/Dextrose 3.375 gm in 50 mls @ 100 mls/hr 04/14/24 19:00 04/15/24 12:20 Zosyn 3.375 Gm/Ns 50 Ml IVPB 100 mls/hr Q6HR KAJAL Administration Ibuprofen 800 mg in 200 mls @ 400 mls/hr 04/14/24 15:24 Caldolor 800 Mg/200 Ml IVPB Q6H PRN Pain Rated 1-3 Dextrose 1,000 mls @ 100 mls/hr 04/14/24 16:42 04/15/24 12:08 Dextrose 5% 1,000 Ml IVPB 100 mls/hr PRN PRN Administration Hypoglycemia Protocol Dextrose/Lactated Ringer's 1,000 mls @ 100 mls/hr 04/15/24 12:30 Dextrose 5%/Lactated Ringers IV CONT .Q10H [facility] Insulin Aspart 2 - 5 units 04/14/24 18:00 04/15/24 05:42 Insulin Aspart (*Bkc) 100 Units/Ml SUB-Q Not Given Q6HR [facility] Protocol Morphine Sulfate 4 mg 04/14/24 14:36 04/15/24 09:02 Morphine Sulfate (*Crx) 4 Mg/Ml Inj IV PUSH 4 mg Q2H PRN Administration Pain Rated 7-10 Morphine Sulfate 2 mg 04/14/24 15:24 04/15/24 01:09 Morphine Sulfate (*Crx) 2 Mg/Ml Inj IV PUSH 2 mg Q2H PRN Administration Pain Rated 4-6 Ondansetron HCl 4 mg 04/14/24 14:36 Ondansetron Inj 4 Mg/2 Ml Vial IV PUSH Q4H PRN Nausea Radiology Results: ITS
[2024-04-15 12:54] LABS: Glucose Point of Care 73 mg/dl (65-105)
[2024-04-15 14:00] VITALS: BP 136/75; PULSE 69; RESP 20; TEMP 36.4; O2SAT 99
[2024-04-15 18:06] LABS: Glucose Point of Care 89 mg/dl (65-105)
[2024-04-15] MEDS: DEXTROSE 5%/LACTATED RINGERS 1,000 ML 100 ML IV CONT (18:10)
[2024-04-15] MEDS: IBUPROFEN IV 800 MG/200 ML 800 MG/200 ML BAG 400 MG IVPB (18:10)
[2024-04-15 21:17] VITALS: BP 140/83; PULSE 96; RESP 20; TEMP 36.4; O2SAT 97
[2024-04-15 23:51] LABS: Glucose Point of Care 92 mg/dl (65-105)
[2024-04-16] MEDS: PIPERACILLN/TAZ 3.375GM/NS50ML 3.375 GM/50 ML BAG IVPB ×5 (00:39→23:13)
[2024-04-16] MEDS: IBUPROFEN IV 800 MG/200 ML 800 MG/200 ML BAG 400 MG IVPB ×4 (00:41→23:48)
[2024-04-16] MEDS: DEXTROSE 5%/LACTATED RINGERS 1,000 ML 100 ML IV CONT ×2 (04:19→13:10)
[2024-04-16 06:00] VITALS: BP 138/86; PULSE 59; RESP 22; TEMP 36.1; O2SAT 100
[2024-04-16 07:33] LABS: Glucose Point of Care 78 mg/dl (65-105)
[2024-04-16 07:58] VITALS: O2SAT 98
[2024-04-16 08:51] LABS: Hemoglobin 13.9 g/dL (14.0-18.0); Mean Corpuscular HGB Conc 32.3 g/dl (32-36); Mean Corpuscular Hemoglobin 29.4 pg (26-34); Mean Corpuscular Volume 91.1 fl (80-100); Mean Platelet Volume 9.9 fl (7.4-10.4); Platelet Count Result 368 k/mm3 (150-375); Red Blood Count 4.72 M/mm3 (4.6-6.20); Red Cell Distribution Width 13.2 % (11.5-14.5); White Blood Count 8.7 K/mm3 (4.5-10.0)
[2024-04-16 09:08] LABS: Anion Gap 12 mmol/L (4-12); Blood Urea Nitrogen 10 mg/dL (9-20); Calcium 9.1 mg/dL (8.4-10.2); Carbon Dioxide 27 mmol/L (22-30); Chloride 101 mmol/L (98-107); Estimated CRCL calculation 76 ml/min; Estimated Glomerular Filt Rate > 60; Glucose 93 mg/dL (65-110); Potassium 3.9 mmol/L (3.4-5.0); Sodium 140 mmol/L (137-145)
[2024-04-16] MEDS: ENOXAPARIN 40 MG/0.4 ML SYRINGE SUB-Q (09:18)
[2024-04-16] MEDS: FAMOTIDINE 20 MG/2 ML VIAL IV PUSH ×2 (09:18→20:28)
--- NOTE | 2024-04-16 11:44 | PM.PNGS ---
Progress Note: A&P Assessment and Plan (1) Diverticulitis of large intestine with abscess without bleeding: Code(s): K57.20 - Diverticulitis of large intestine with perforation and abscess without bleeding Status: Acute Assessment and Plan: Continues to improve and pain is better controlled on the scheduled IV Ibuprofen. Will keep him NPO with ice chips again today. Possibly try clear liquids tomorrow if he continues to improve. Continue IV Zosyn and IV fluids. Plan I have discussed the patient's case and plan of care with Dr. Murray. Subjective Subjective Date/Time Seen: 04/16/24 11:44 Patient reports: no new complaints, feels better, pain is less, flatus, no bowel movement and afebrile Interval history: Abdominal pain reportedly improving daily. He reports very mild RLQ soreness when walking, but no pain at rest. No nausea or vomiting. WBC normal today. Exam Const: General: comfortable and no acute distress Orientation/consciousness: patient oriented x3 GI: Inspection: non-distended GI Palp: Yes Soft to palpation, Yes Tenderness to palpation present (GI) (mild RLQ tenderness on exam), No Guarding due to palpation present (GI) and No Rebound tenderness present Percussion: Yes normal to percussion Auscultation: normal bowel sounds Objective Data Vital Signs Vital Signs: Vital Signs - 24 hr 04/15/24 14:00 04/15/24 21:17 04/15/24 20:00 Temperature 97.6 F 97.6 F Pulse Rate 69 96 Respiratory Rate 20 20 Blood Pressure 136/75 140/83 Pulse Oximetry 99 97 Oxygen Delivery Room Air Fraction of Inspired Oxygen 04/16/24 06:00 04/16/24 07:58 Temperature 97.0 F L Pulse Rate 59 L Respiratory Rate 22 H Blood Pressure 138/86 Pulse Oximetry 100 98 Oxygen Delivery Room Air Fraction of Inspired Oxygen 21 Intake/Output Intake/Output: Intake & Output 04/13/24 04/14/24 04/15/24 04/16/24 23:59 23:59 23:59 23:59 Intake Total 1350 3302.1 1250 Output Total 200 Balance 1350 3302.1 1050 Meds/Results Medications: Active Medications Generic Name Dose Route Start Last Admin Trade Name Freq PRN Reason Stop Dose Admin Dextrose 12.5 gm 04/14/24 16:42 Dextrose 50% 25 Gm/50 Ml Syringe IV PUSH PRN PRN Hypoglycemia Protocol Enoxaparin Sodium 40 mg 04/15/24 09:00 04/16/24 09:18 Enoxaparin 40 Mg/0.4 Ml Syringe SUB-Q 40 mg DAILY KAJAL Administration Famotidine 20 mg 04/14/24 21:00 04/16/24 09:18 Famotidine 20 Mg/2 Ml Vial IV PUSH 20 mg Q12HR KAJAL Administration Glucagon 1 mg 04/14/24 16:42 Glucagon For Inj 1 Mg Vial IM PRN PRN Hypoglycemia Protocol Glucose 15 gm 04/14/24 16:42 Glucose Oral Gel 15 Gm Of Glucse In 37.5 Gm Tube PO PRN PRN Hypoglycemia Protocol Piperacillin/Tazobactam/Dextrose 3.375 gm in 50 mls @ 100 mls/hr 04/14/24 19:00 04/16/24 06:19 Zosyn 3.375 Gm/Ns 50 Ml IVPB 100 mls/hr Q6HR KAJAL Administration Dextrose 1,000 mls @ 100 mls/hr 04/14/24 16:42 04/15/24 22:05 Dextrose 5% 1,000 Ml IVPB Infused PRN PRN Infusion Hypoglycemia Protocol Dextrose/Lactated Ringer's 1,000 mls @ 100 mls/hr 04/15/24 12:30 04/16/24 04:19 Dextrose 5%/Lactated Ringers IV CONT 100 mls/hr .Q10H KAJAL Administration Ibuprofen 800 mg in 200 mls @ 400 mls/hr 04/15/24 12:47 04/16/24 05:08 Caldolor 800 Mg/200 Ml IVPB Not Given Q6HR KAJAL Insulin Aspart 2 - 5 units 04/14/24 18:00 04/16/24 05:08 Insulin Aspart (*Bkc) 100 Units/Ml SUB-Q Not Given Q6HR [facility] Protocol Morphine Sulfate 4 mg 04/14/24 14:36 04/15/24 09:02 Morphine Sulfate (*Crx) 4 Mg/Ml Inj IV PUSH 4 mg Q2H PRN Administration Pain Rated 7-10 Morphine Sulfate 2 mg 04/14/24 15:24 04/15/24 01:09 Morphine Sulfate (*Crx) 2 Mg/Ml Inj IV PUSH 2 mg Q2H PRN Administration Pain Rated 4-6 Ondansetron HCl 4 mg 04/14/24 14:36 Ondansetron Inj 4 Mg/2 Ml Vial IV PUSH
[2024-04-16 12:13] LABS: Glucose Point of Care 83 mg/dl (65-105)
[2024-04-16 14:00] VITALS: BP 140/87; PULSE 59; RESP 19; TEMP 36.3; O2SAT 97
[2024-04-16 17:49] LABS: Glucose Point of Care 93 mg/dl (65-105)
[2024-04-16 20:00] VITALS: BP 142/85; PULSE 55; RESP 18; TEMP 36.9; O2SAT 99
[2024-04-17 00:36] LABS: Glucose Point of Care 79 mg/dl (65-105)
[2024-04-17] MEDS: DEXTROSE 5%/LACTATED RINGERS 1,000 ML 100 ML IV CONT (02:54)
[2024-04-17 04:05] VITALS: BP 144/81; PULSE 57; RESP 18; TEMP 37.3; O2SAT 99
[2024-04-17] MEDS: PIPERACILLN/TAZ 3.375GM/NS50ML 3.375 GM/50 ML BAG IVPB ×4 (05:12→23:41)
[2024-04-17] MEDS: IBUPROFEN IV 800 MG/200 ML 800 MG/200 ML BAG 400 MG IVPB ×3 (05:48→18:54)
[2024-04-17 06:43] LABS: Glucose Point of Care 88 mg/dl (65-105)
[2024-04-17 07:16] LABS: Hematocrit 38.4 % (42.0-52.0); Hemoglobin 12.7 g/dL (14.0-18.0); Mean Corpuscular HGB Conc 33.1 g/dl (32-36); Mean Corpuscular Hemoglobin 29.9 pg (26-34); Mean Corpuscular Volume 90.4 fl (80-100); Platelet Count Result 303 k/mm3 (150-375); Red Blood Count 4.25 M/mm3 (4.6-6.20); Red Cell Distribution Width 13.2 % (11.5-14.5); White Blood Count 7.2 K/mm3 (4.5-10.0)
[2024-04-17 07:49] LABS: Alanine Aminotransferase 11 U/L (6-50); Albumin Level 3.4 g/dL (3.5-5.1); Alkaline Phosphatase 139 U/L (38-126); Anion Gap 9 mmol/L (4-12); Aspartate Amino Transferase 31 U/L (17-59); Bilirubin,Total 0.6 mg/dL (0.2-1.3); Blood Urea Nitrogen 8 mg/dL (9-20); Calcium 8.5 mg/dL (8.4-10.2); Carbon Dioxide 25 mmol/L (22-30); Chloride 106 mmol/L (98-107); Estimated CRCL calculation 83 ml/min; Estimated Glomerular Filt Rate > 60; Glucose 84 mg/dL (65-110); Potassium 3.7 mmol/L (3.4-5.0); Sodium 140 mmol/L (137-145)
[2024-04-17] MEDS: ENOXAPARIN 40 MG/0.4 ML SYRINGE SUB-Q (08:08)
[2024-04-17] MEDS: FAMOTIDINE 20 MG/2 ML VIAL IV PUSH ×2 (08:09→20:51)
--- NOTE | 2024-04-17 08:56 | PM.IMPN ---
Progress Note: A&P Assessment and Plan (1) Diverticulitis of large intestine with abscess without bleeding: Code(s): K57.20 - Diverticulitis of large intestine with perforation and abscess without bleeding Status: Acute Assessment and Plan: - CT Abdomen/pelvis: sigmoid diverticulitis with 2 small pericolonic abscesses. - Dr. Murray recommends IV antibiotics with serial abdominal exams. - Antibiotics: Zosyn - Diet: clear liquid diet - Analgesics and antiemetics are available as needed. - Monitor vital signs, I&Os, track stool output, watch for bloody stools, neuro status and patient is a fall risk - Monitor serum electrolytes and CBC - Gentle IV fluid resuscitation discontinued as patient is tolerating diet well (2) Mild dehydration: Code(s): E86.0 - Dehydration Status: Inactive Assessment and Plan: D5/LR 100 ml/hr, discontinued given that patient is tolerating current diet well Monitor volume status Resolved. (3) Type 2 diabetes mellitus: Code(s): E11.9 - Type 2 diabetes mellitus without complications Status: Acute Assessment and Plan: - hypoglycemia protocol - POC blood glucose ACHS - home medication - empagliflozin and mounjaro - correct regimen ordered - low dose TIDWM - A1C 6.5 Time Spent With Patient Time with patient: 25 - 35 minutes Subjective Date/time seen: 04/17/24 08:56 Interval history: This is a pleasant 59-year-old male with history of diverticulitis, stroke, type 2 diabetes mellitus, and hyperlipidemia who presented to the emergency department earlier today for evaluation of right lower quadrant abdominal pain and feelings of constipation for about 5 weeks. The last 4 days his symptoms have been worse with pain, decreased appetite, and chills. He saw primary care physician and was referred to a surgeon at [facility] earlier this week due to suspicions for recurrent diverticulitis. CT scan of the abdomen and pelvis done yesterday reportedly showed diverticulitis with abscess and he was told to come to the ED. He was given Zosyn 4.5 g and was admitted to the medical floor under the surgical service for further treatment. The hospitalist service has been consulted in this setting for help managing his medical conditions. He has not had a documented fever and denies vomiting and blood and mucus in the stool. Regarding his chronic medical conditions, he believes they are well controlled on medication. He checks his fasting glucose couple of times a week and it is usually between 120 and 130. He has not had any significant lows or highs. 04/17/2024: Patient is pleasant lying comfortably in bed. He states that his pain has significantly improved and now he has intermittent aching to the lower abdomen. He was started on clear liquid diet and is tolerating this well. He denies nausea and vomiting.He does continue to endorse abdominal pain to the right lower quadrant. Per surgery, May need to consider repeating a CT scan of the abdomen/pelvis if his abdominal pain continues. Review of Systems Review of Systems: All systems reviewed & are unremarkable except as noted in HPI and below (HPI and those items noted below) Exam Narrative: AF HR 57 RR 18 SpO2 99 BP 144/81 General: male in no acute respiratory distress who is nontoxic appearing, lying semi recumbent in bed. HEENT: No facial asymmetry. Chest: Lungs are clear to auscultation bilaterally. No wheezes or crackles. CV: Heart was regular rate and rhythm. S1/S2. No murmurs, gallops, or rubs. Abd: Abdomen was soft. Mild tenderness to palpation more in the lower abdomen. Nondistended. Positive bowel sounds. No organomegaly or masses. Neuro: Patient is alert and oriented x4. Speech is clear. Objective Data Vital Signs Vital Signs: Vital Signs - 24 hr 04/16/24 14:00 04/16/24 20:00 04/16/24 20:00 Temperature 97.3 F L 98.4 F Pulse Rate 59 L 55 L Respiratory Rate 19 18 Blood
[2024-04-17 11:42] LABS: Glucose Point of Care 92 mg/dl (65-105)
[2024-04-17] MEDS: EMPAGLIFLOZIN 25 MG TABLET PO (12:15)
[2024-04-17] MEDS: ASPIRIN 81 MG ENTERIC TABLET PO (12:15)
[2024-04-17] MEDS: ROSUVASTATIN 20 MG TABLET PO (12:16)
[2024-04-17] MEDS: lisinopriL 10 MG TABLET PO (12:16)
--- NOTE | 2024-04-17 13:34 | PM.PNGS ---
Progress Note: A&P Assessment and Plan (1) Diverticulitis of large intestine with abscess without bleeding: Code(s): K57.20 - Diverticulitis of large intestine with perforation and abscess without bleeding Status: Acute Assessment and Plan: Still complaining of abdominal pain, although some improvement. WBC count remains normal. Will start a clear liquid diet today. Repeat labs and exam tomorrow. May need to consider repeating a CT scan of the abdomen/pelvis if his abdominal pain continues. Plan I have discussed the patient's case and plan of care with Dr. Murray. Subjective Subjective Date/Time Seen: 04/17/24 13:34 Patient reports: feels better, pain is less, flatus and afebrile Interval history: Patient still having some RLQ pain, although improved. No nausea. No other complaints at this time. Exam GI: Inspection: non-distended GI Palp: Yes Soft to palpation, Yes Tenderness to palpation present (GI) (mostly tender in the RLQ), No Guarding due to palpation present (GI) and No Rebound tenderness present Auscultation: normal bowel sounds Objective Data Vital Signs Vital Signs: Vital Signs - 24 hr 04/16/24 14:00 04/16/24 20:00 04/16/24 20:00 Temperature 97.3 F L 98.4 F Pulse Rate 59 L 55 L Respiratory Rate 19 18 Blood Pressure 140/87 142/85 H Pulse Oximetry 97 99 Oxygen Delivery Room Air 04/17/24 04:05 Temperature 99.1 F Pulse Rate 57 L Respiratory Rate 18 Blood Pressure 144/81 H Pulse Oximetry 99 Oxygen Delivery Intake/Output Intake/Output: Intake & Output 04/14/24 04/15/24 04/16/24 04/17/24 23:59 23:59 23:59 23:59 Intake Total 1350 3302.1 2735 1650 Output Total 200 Balance 1350 3302.1 2535 1650 Meds/Results Medications: Active Medications Generic Name Dose Route Start Last Admin Trade Name Freq PRN Reason Stop Dose Admin Acetaminophen 650 mg 04/17/24 09:29 Acetaminophen 325 Mg Tablet PO Q6H PRN Mild Pain (1-3) Or Fever Aspirin 81 mg 04/17/24 09:00 04/17/24 12:15 Aspirin 81 Mg Enteric Tablet PO 81 mg DAILY KAJAL Administration Dextrose 12.5 gm 04/14/24 16:42 Dextrose 50% 25 Gm/50 Ml Syringe IV PUSH PRN PRN Hypoglycemia Protocol Empagliflozin 25 mg 04/17/24 09:00 04/17/24 12:15 Empagliflozin 25 Mg Tablet PO 25 mg DAILY KAJAL Administration Enoxaparin Sodium 40 mg 04/15/24 09:00 04/17/24 08:08 Enoxaparin 40 Mg/0.4 Ml Syringe SUB-Q 40 mg DAILY KAJAL Administration Famotidine 20 mg 04/14/24 21:00 04/17/24 08:09 Famotidine 20 Mg/2 Ml Vial IV PUSH 20 mg Q12HR KAJAL Administration Glucagon 1 mg 04/14/24 16:42 Glucagon For Inj 1 Mg Vial IM PRN PRN Hypoglycemia Protocol Glucose 15 gm 04/14/24 16:42 Glucose Oral Gel 15 Gm Of Glucse In 37.5 Gm Tube PO PRN PRN Hypoglycemia Protocol Piperacillin/Tazobactam/Dextrose 3.375 gm in 50 mls @ 100 mls/hr 04/14/24 19:00 04/17/24 12:12 Zosyn 3.375 Gm/Ns 50 Ml IVPB 100 mls/hr Q6HR KAJAL Administration Dextrose 1,000 mls @ 100 mls/hr 04/14/24 16:42 04/15/24 22:05 Dextrose 5% 1,000 Ml IVPB Infused PRN PRN Infusion Hypoglycemia Protocol Dextrose/Lactated Ringer's 1,000 mls @ 100 mls/hr 04/15/24 12:30 04/17/24 02:54 Dextrose 5%/Lactated Ringers IV CONT 100 mls/hr .Q10H KAJAL Administration Ibuprofen 800 mg in 200 mls @ 400 mls/hr 04/15/24 12:47 04/17/24 12:21 Caldolor 800 Mg/200 Ml IVPB 400 mls/hr Q6HR KAJAL Administration Insulin Aspart 2 - 5 units 04/14/24 18:00 04/17/24 06:55 Insulin Aspart (*Bkc) 100 Units/Ml SUB-Q Not Given Q6HR KAJAL Protocol Lisinopril 10 mg 04/17/24 09:00 04/17/24 12:16 Lisinopril 10 Mg Tablet PO 10 mg DAILY KAJAL Administration Loratadine 10 mg 04/18/24 09:00 Loratadine 10 Mg Tablet PO DAILY KAJAL Morphine Sulfate 4 mg 04/14/24 14:36 04/15/24 09:02 Morphine Sulfate (*Crx) 4 Mg/Ml Inj IV PUSH
[2024-04-17 14:00] VITALS: BP 146/73; PULSE 60; RESP 16; TEMP 36.7; O2SAT 99
[2024-04-17 18:41] LABS: Glucose Point of Care 142 mg/dl (65-105)
[2024-04-17 21:23] VITALS: BP 132/79; PULSE 50; RESP 13; TEMP 36.4; O2SAT 97
[2024-04-17 23:53] LABS: Glucose Point of Care 83 mg/dl (65-105)
[2024-04-18] MEDS: IBUPROFEN IV 800 MG/200 ML 800 MG/200 ML BAG 400 MG IVPB ×4 (00:11→22:38)
[2024-04-18] MEDS: PIPERACILLN/TAZ 3.375GM/NS50ML 3.375 GM/50 ML BAG IVPB ×4 (05:23→23:17)
[2024-04-18 05:36] VITALS: BP 132/80; PULSE 64; RESP 16; TEMP 36.4; O2SAT 97
[2024-04-18 05:37] LABS: Glucose Point of Care 87 mg/dl (65-105)
[2024-04-18 06:34] LABS: Basophils Absolute Auto 0.1 K/mm3 (0.0-0.1); Basophils Percent Auto 0.9 % (0.2-1.2); Eosinophils Absolute Auto 0.3 K/mm3 (0-0.3); Hematocrit 41.1 % (42.0-52.0); Hemoglobin 13.3 g/dL (14.0-18.0); Immature Granulocyte Absolute 0.09 K/mm3 (0.00-0.031); Lymphocytes Absolute Auto 1.65 K/mm3 (0.9-3.2); Lymphocytes Percent Auto 18.6 % (18.3-44.2); Mean Corpuscular HGB Conc 32.4 g/dl (32-36); Mean Corpuscular Hemoglobin 29.6 pg (26-34); Mean Corpuscular Volume 91.3 fl (80-100); Mean Platelet Volume 9.8 fl (7.4-10.4); Monocytes Absolute Auto 0.7 K/mm3 (0.1-0.6); Monocytes Percent Auto 8.1 % (2.6-8.5); Neutrophils Absolute Auto 6.1 K/mm3 (1.3-6.7); Neutrophils Percent Auto 68.4 % (45.5-73.1); Platelet Count Result 295 k/mm3 (150-375); Red Cell Distribution Width 13.3 % (11.5-14.5); White Blood Count 8.9 K/mm3 (4.5-10.0)
[2024-04-18 06:48] LABS: Alanine Aminotransferase 14 U/L (6-50); Albumin Level 3.8 g/dL (3.5-5.1); Alkaline Phosphatase 160 U/L (38-126); Anion Gap 10 mmol/L (4-12); Aspartate Amino Transferase 35 U/L (17-59); Bilirubin,Total 0.7 mg/dL (0.2-1.3); Blood Urea Nitrogen 7 mg/dL (9-20); Calcium 8.8 mg/dL (8.4-10.2); Carbon Dioxide 25 mmol/L (22-30); Chloride 106 mmol/L (98-107); Estimated CRCL calculation 76 ml/min; Estimated Glomerular Filt Rate > 60; Glucose 82 mg/dL (65-110); Potassium 3.9 mmol/L (3.4-5.0); Sodium 141 mmol/L (137-145)
[2024-04-18] MEDS: LORATADINE 10 MG TABLET PO (08:18)
[2024-04-18] MEDS: ASPIRIN 81 MG ENTERIC TABLET PO (08:18)
[2024-04-18] MEDS: lisinopriL 10 MG TABLET PO (08:18)
[2024-04-18] MEDS: ROSUVASTATIN 20 MG TABLET PO (08:18)
[2024-04-18] MEDS: ENOXAPARIN 40 MG/0.4 ML SYRINGE SUB-Q (08:18)
[2024-04-18] MEDS: FAMOTIDINE 20 MG/2 ML VIAL IV PUSH ×2 (08:19→20:21)
[2024-04-18] MEDS: EMPAGLIFLOZIN 25 MG TABLET PO (08:19)
--- NOTE | 2024-04-18 09:58 | PM.IMPN ---
Progress Note: A&P Assessment and Plan (1) Diverticulitis of large intestine with abscess without bleeding: Code(s): K57.20 - Diverticulitis of large intestine with perforation and abscess without bleeding Status: Acute Assessment and Plan: - CT Abdomen/pelvis: sigmoid diverticulitis with 2 small pericolonic abscesses. - Dr. Murray recommends IV antibiotics with serial abdominal exams. - Antibiotics: Zosyn - Diet: clear liquid diet - Analgesics and antiemetics are available as needed. - Monitor vital signs, I&Os, track stool output, watch for bloody stools, neuro status and patient is a fall risk - Monitor serum electrolytes and CBC - Gentle IV fluid resuscitation discontinued as patient is tolerating diet well (2) Mild dehydration: Code(s): E86.0 - Dehydration Status: Inactive Assessment and Plan: D5/LR 100 ml/hr, discontinued given that patient is tolerating current diet well Monitor volume status Resolved. (3) Type 2 diabetes mellitus: Code(s): E11.9 - Type 2 diabetes mellitus without complications Status: Acute Assessment and Plan: - hypoglycemia protocol - POC blood glucose ACHS - home medication - empagliflozin and mounjaro - correct regimen ordered - low dose TIDWM - A1C 6.5 - holding home meds Time Spent With Patient Time with patient: Greater than 35 minutes Subjective Date/time seen: 04/18/24 09:58 Interval history: This is a pleasant 59-year-old male with history of diverticulitis, stroke, type 2 diabetes mellitus, and hyperlipidemia who presented to the emergency department earlier today for evaluation of right lower quadrant abdominal pain and feelings of constipation for about 5 weeks. The last 4 days his symptoms have been worse with pain, decreased appetite, and chills. He saw primary care physician and was referred to a surgeon at [facility] earlier this week due to suspicions for recurrent diverticulitis. CT scan of the abdomen and pelvis done yesterday reportedly showed diverticulitis with abscess and he was told to come to the ED. He was given Zosyn 4.5 g and was admitted to the medical floor under the surgical service for further treatment. The hospitalist service has been consulted in this setting for help managing his medical conditions. He has not had a documented fever and denies vomiting and blood and mucus in the stool. Regarding his chronic medical conditions, he believes they are well controlled on medication. He checks his fasting glucose couple of times a week and it is usually between 120 and 130. He has not had any significant lows or highs. 04/17/2024: Patient is pleasant lying comfortably in bed. He states that his pain has significantly improved and now he has intermittent aching to the lower abdomen. He was started on clear liquid diet and is tolerating this well. He denies nausea and vomiting.He does continue to endorse abdominal pain to the right lower quadrant. Per surgery, May need to consider repeating a CT scan of the abdomen/pelvis if his abdominal pain continues. 04/18: pt is seen and examined. Tolerating clears but no abd pain- surgery is following- consider repeating CT today if pain persists. Review of Systems Review of Systems: All systems reviewed & are unremarkable except as noted in HPI and below (HPI and those items noted below) Constitutional: Constitutional: Denies chills and Denies fever(s) Cardiovascular: Cardiovascular: Denies chest pain, Denies diaphoresis, Denies dyspnea and Denies paroxysmal nocturnal dyspnea Respiratory: Respiratory: Denies chest congestion, Denies cough and Denies dyspnea Integumentary/Breasts: Skin/Breast: Denies lesions and Denies rash Exam Narrative: AF HR 57 RR 18 SpO2 99 BP 144/81 General: male in no acute respiratory distress who is nontoxic appearing, lying semi recumbent in bed. HEENT: No facial asymmetry. Chest: Lungs are clear to auscultation lucian
[2024-04-18 11:40] LABS: Glucose Point of Care 140 mg/dl (65-105)
--- NOTE | 2024-04-18 13:16 | PM.PNGS ---
Progress Note: A&P Assessment and Plan (1) Diverticulitis of large intestine with abscess without bleeding: Code(s): K57.20 - Diverticulitis of large intestine with perforation and abscess without bleeding Status: Acute Assessment and Plan: Continues to improve with no abdominal pain today. No abdominal tenderness on exam. Will advance to a low fiber diet. Continue IV antibiotics. He may be able to discharge home tomorrow on oral antibiotics if he continues to improve. Plan I have discussed the patient's case and plan of care with Dr. Murray. Subjective Subjective Date/Time Seen: 04/18/24 13:16 Patient reports: no new complaints, feels better, flatus, bowel movement (today) and afebrile Interval history: Feels much better today. Denies any abdominal pain all morning. He has been up walking without any pain and also had a formed BM this morning. Exam GI: Inspection: non-distended GI Palp: Yes Soft to palpation, No Tenderness to palpation present (GI), No Guarding due to palpation present (GI) and No Rebound tenderness present Auscultation: normal bowel sounds Objective Data Vital Signs Vital Signs: Vital Signs - 24 hr 04/17/24 14:00 04/17/24 21:23 04/17/24 20:00 Temperature 98.1 F 97.5 F L Pulse Rate 60 50 L Respiratory Rate 16 13 Blood Pressure 146/73 H 132/79 Pulse Oximetry 99 97 Oxygen Delivery Room Air 04/18/24 05:36 Temperature 97.5 F L Pulse Rate 64 Respiratory Rate 16 Blood Pressure 132/80 Pulse Oximetry 97 Oxygen Delivery Intake/Output Intake/Output: Intake & Output 04/15/24 04/16/24 04/17/24 04/18/24 23:59 23:59 23:59 23:59 Intake Total 3302.1 6975 4160 618 Output Total 200 Balance 3302.1 5265 4160 618 Meds/Results Medications: Active Medications Generic Name Dose Route Start Last Admin Trade Name Freq PRN Reason Stop Dose Admin Acetaminophen 650 mg 04/17/24 09:29 Acetaminophen 325 Mg Tablet PO Q6H PRN Mild Pain (1-3) Or Fever Aspirin 81 mg 04/17/24 09:00 04/18/24 08:18 Aspirin 81 Mg Enteric Tablet PO 81 mg DAILY KAJAL Administration Dextrose 12.5 gm 04/14/24 16:42 Dextrose 50% 25 Gm/50 Ml Syringe IV PUSH PRN PRN Hypoglycemia Protocol Empagliflozin 25 mg 04/17/24 09:00 04/18/24 08:19 Empagliflozin 25 Mg Tablet PO 25 mg DAILY KAJAL Administration Enoxaparin Sodium 40 mg 04/15/24 09:00 04/18/24 08:18 Enoxaparin 40 Mg/0.4 Ml Syringe SUB-Q 40 mg DAILY KAJAL Administration Famotidine 20 mg 04/14/24 21:00 04/18/24 08:19 Famotidine 20 Mg/2 Ml Vial IV PUSH 20 mg Q12HR KAJAL Administration Glucagon 1 mg 04/14/24 16:42 Glucagon For Inj 1 Mg Vial IM PRN PRN Hypoglycemia Protocol Glucose 15 gm 04/14/24 16:42 Glucose Oral Gel 15 Gm Of Glucse In 37.5 Gm Tube PO PRN PRN Hypoglycemia Protocol Piperacillin/Tazobactam/Dextrose 3.375 gm in 50 mls @ 100 mls/hr 04/14/24 19:00 04/18/24 11:39 Zosyn 3.375 Gm/Ns 50 Ml IVPB 100 mls/hr Q6HR KAJAL Administration Dextrose 1,000 mls @ 100 mls/hr 04/14/24 16:42 04/15/24 22:05 Dextrose 5% 1,000 Ml IVPB Infused PRN PRN Infusion Hypoglycemia Protocol Ibuprofen 800 mg in 200 mls @ 400 mls/hr 04/15/24 12:47 04/18/24 11:03 Caldolor 800 Mg/200 Ml IVPB 400 mls/hr Q6HR KAJAL Administration Insulin Aspart 2 - 5 units 04/14/24 18:00 04/18/24 11:53 Insulin Aspart (*Bkc) 100 Units/Ml SUB-Q Not Given Q6HR [facility] Protocol Lisinopril 10 mg 04/17/24 09:00 04/18/24 08:18 Lisinopril 10 Mg Tablet PO 10 mg DAILY KAJAL Administration Loratadine 10 mg 04/18/24 09:00 04/18/24 08:18 Loratadine 10 Mg Tablet PO 10 mg DAILY KAJAL Administration Morphine Sulfate 4 mg 04/14/24 14:36 04/15/24 09:02 Morphine Sulfate (*Crx) 4 Mg/Ml Inj IV PUSH 4 mg Q2H PRN Administration Pain Rated 7-10 Morphine Sulfate 2 mg 04/14/24 15:24 04/15/24 01:09 Jocelynn
[2024-04-18 14:00] VITALS: BP 140/81; PULSE 65; RESP 14; TEMP 36.4; O2SAT 100
[2024-04-18 20:55] VITALS: BP 140/84; PULSE 67; RESP 16; TEMP 36.9; O2SAT 100
[2024-04-19] MEDS: PIPERACILLN/TAZ 3.375GM/NS50ML 3.375 GM/50 ML BAG IVPB ×2 (05:28→13:00)
[2024-04-19 05:32] VITALS: BP 130/82; PULSE 70; RESP 18; TEMP 36.3; O2SAT 100
[2024-04-19 06:30] LABS: Basophils Absolute Auto 0.1 K/mm3 (0.0-0.1); Eosinophils Absolute Auto 0.2 K/mm3 (0-0.3); Eosinophils Percent Auto 2.3 % (0-4.4); Hematocrit 40.3 % (42.0-52.0); Hemoglobin 12.9 g/dL (14.0-18.0); Immature Granulocyte Absolute 0.11 K/mm3 (0.00-0.031); Immature Granulocyte Percent A 1.1 % (0-0.5); Lymphocytes Absolute Auto 2.18 K/mm3 (0.9-3.2); Mean Corpuscular Hemoglobin 29.5 pg (26-34); Monocytes Absolute Auto 0.9 K/mm3 (0.1-0.6); Monocytes Percent Auto 8.6 % (2.6-8.5); Neutrophils Absolute Auto 6.9 K/mm3 (1.3-6.7); Platelet Count Result 295 k/mm3 (150-375); Red Blood Count 4.38 M/mm3 (4.6-6.20); Red Cell Distribution Width 13.4 % (11.5-14.5); White Blood Count 10.4 K/mm3 (4.5-10.0)
[2024-04-19 06:42] LABS: Alanine Aminotransferase 15 U/L (6-50); Albumin Level 3.7 g/dL (3.5-5.1); Alkaline Phosphatase 148 U/L (38-126); Anion Gap 8 mmol/L (4-12); Aspartate Amino Transferase 32 U/L (17-59); Bilirubin,Total 0.4 mg/dL (0.2-1.3); Blood Urea Nitrogen 8 mg/dL (9-20); Calcium 8.9 mg/dL (8.4-10.2); Carbon Dioxide 25 mmol/L (22-30); Chloride 107 mmol/L (98-107); Estimated CRCL calculation 70 ml/min; Estimated Glomerular Filt Rate > 60; Glucose 86 mg/dL (65-110); Potassium 3.8 mmol/L (3.4-5.0); Sodium 140 mmol/L (137-145)
[2024-04-19] MEDS: ROSUVASTATIN 20 MG TABLET PO (08:30)
[2024-04-19] MEDS: LORATADINE 10 MG TABLET PO (08:30)
[2024-04-19] MEDS: EMPAGLIFLOZIN 25 MG TABLET PO (08:30)
[2024-04-19] MEDS: lisinopriL 10 MG TABLET PO (08:30)
[2024-04-19] MEDS: ASPIRIN 81 MG ENTERIC TABLET PO (08:30)
[2024-04-19] MEDS: ENOXAPARIN 40 MG/0.4 ML SYRINGE SUB-Q (08:30)
[2024-04-19] MEDS: FAMOTIDINE 20 MG/2 ML VIAL IV PUSH (08:30)
--- NOTE | 2024-04-19 09:09 | PM.IMCN ---
Assessment and Plan Assessment and plan (1) Diverticulitis of large intestine with abscess without bleeding: Code(s): K57.20 - Diverticulitis of large intestine with perforation and abscess without bleeding Status: Acute Assessment and Plan: - CT Abdomen/pelvis: sigmoid diverticulitis with 2 small pericolonic abscesses. - Dr. Murray recommends IV antibiotics with serial abdominal exams. - Antibiotics: Zosyn - Diet: clear liquid diet - Analgesics and antiemetics are available as needed. - Monitor vital signs, I&Os, track stool output, watch for bloody stools, neuro status and patient is a fall risk - Monitor serum electrolytes and CBC - Gentle IV fluid resuscitation discontinued as patient is tolerating diet well - diet is advanced to clears and to low fiber now - if tolerating it well- may be discharged (2) Mild dehydration: Code(s): E86.0 - Dehydration Status: Inactive Assessment and Plan: D5/LR 100 ml/hr, discontinued given that patient is tolerating current diet well Monitor volume status Resolved. (3) Type 2 diabetes mellitus: Code(s): E11.9 - Type 2 diabetes mellitus without complications Status: Acute Assessment and Plan: - hypoglycemia protocol - POC blood glucose ACHS - home medication - empagliflozin and mounjaro - correct regimen ordered - low dose TIDWM - A1C 6.5 - holding home meds - BS well controlled- no adjustment to regimen HPI Date of Consult Consult date: 04/19/24 Requesting Physician: Rashaad Murray MD Primary Care Provider: Kvng SnowMD Consult Narrative Reason for consult: medicl mngmt Narrative: this is a pleasant 59-year-old male with history of diverticulitis, stroke, type 2 diabetes mellitus, and hyperlipidemia who presented to the emergency department earlier today for evaluation of right lower quadrant abdominal pain and feelings of constipation for about 5 weeks. The last 4 days his symptoms have been worse with pain, decreased appetite, and chills. He saw primary care physician and was referred to a surgeon at [facility] earlier this week due to suspicions for recurrent diverticulitis. CT scan of the abdomen and pelvis done yesterday reportedly showed diverticulitis with abscess and he was told to come to the ED. He was given Zosyn 4.5 g and was admitted to the medical floor under the surgical service for further treatment. The hospitalist service has been consulted in this setting for help managing his medical conditions. He has not had a documented fever and denies vomiting and blood and mucus in the stool. 04/18: pt is seen and examined. Tolerating clears but no abd pain- surgery is following- consider repeating CT today if pain persists. 04/19 abd pain is a lot better- diet advanced to low fiber- if stable- may be cleared to go home per surgery. Review of Systems Review of Systems: All systems reviewed & are unremarkable except as noted in HPI and below (HPI and those items noted below) Constitutional: Constitutional: Denies chills and Denies fever(s) Cardiovascular: Cardiovascular: Denies chest pain, Denies diaphoresis, Denies dyspnea and Denies paroxysmal nocturnal dyspnea Respiratory: Respiratory: Denies chest congestion, Denies cough and Denies dyspnea Integumentary/Breasts: Skin/Breast: Denies lesions and Denies rash PMFSH Past Medical History Medical History (Updated 04/14/24 @ 23:00 by Elicia Krishnan PA-C) Anxiety Cerebrovascular accident (~2015) With mild residual left-sided weakness. Diverticulitis 3 total flares Gastroesophageal reflux Hyperlipidemia Osteoarthritis of both shoulders Type 2 diabetes mellitus Surgical History Surgical History History of tonsillectomy (~1970) Family History Family History Father Acute myocardial infarction Diabetes alexsander
[2024-04-19 13:46] VITALS: BP 128/83; PULSE 69; RESP 18; TEMP 36.8; O2SAT 98
--- NOTE | 2024-04-19 14:54 | PM.PNGS ---
Progress Note: A&P Assessment and Plan (1) Diverticulitis of large intestine with abscess without bleeding: Code(s): K57.20 - Diverticulitis of large intestine with perforation and abscess without bleeding Status: Acute Assessment and Plan: Recurrent RLQ abdominal pain after eating dinner last night. WBC count up slightly to 10.[address] scan abdomen and pelvis ordered to re-evaluate, which appears stable. The two fluid collections are stable and actually slightly improved. Okay from a surgical standpoint to discharge the patient today on oral antibiotics for another 7 days. D/c on a low fiber diet. F/u with Dr. Murray in 1 week. Plan I have discussed the patient's case and plan of care with Dr. Murray. Subjective Subjective Date/Time Seen: 04/19/24 14:54 Patient reports: no new complaints, flatus, bowel movement and afebrile Interval history: Patient had complaints of RLQ abdominal pain after eating potroast last night for dinner. His pain improved and returned again after eating breakfast this morning. He reports the pain is mild. No other complaints at this time. Exam Const: General: comfortable and no acute distress Orientation/consciousness: patient oriented x3 GI: Inspection: non-distended GI Palp: Yes Soft to palpation, Yes Tenderness to palpation present (GI) (mild RLQ tenderness with deep palpation), No Guarding due to palpation present (GI), Yes No hepatosplenomegaly present and Yes Rebound tenderness present Percussion: Yes normal to percussion Auscultation: normal bowel sounds Objective Data Vital Signs Vital Signs: Vital Signs - 24 hr 04/18/24 20:55 04/18/24 20:20 04/19/24 05:32 Temperature 98.4 F 97.4 F L Pulse Rate 67 70 Respiratory Rate 16 18 Blood Pressure 140/84 130/82 Pulse Oximetry 100 100 Oxygen Delivery Room Air 04/19/24 08:30 04/19/24 13:46 Temperature 98.3 F Pulse Rate 69 Respiratory Rate 18 Blood Pressure 128/83 Pulse Oximetry 98 Oxygen Delivery Room Air Intake/Output Intake/Output: Intake & Output 04/16/24 04/17/24 04/18/24 04/19/24 23:59 23:59 23:59 23:59 Intake Total 2735 4160 1248 1360 Output Total 200 Balance 2535 4160 1248 1360 Meds/Results Medications: Active Medications Generic Name Dose Route Start Last Admin Trade Name Freq PRN Reason Stop Dose Admin Acetaminophen 650 mg 04/17/24 09:29 Acetaminophen 325 Mg Tablet PO Q6H PRN Mild Pain (1-3) Or Fever Hydrocodone Bitart/Acetaminophen 1 tab 04/18/24 13:16 Hydrocodone/Acetaminophen (*Crx) 5-325 Mg Tablet PO Q4H PRN Pain Rated 4-6 Aspirin 81 mg 04/17/24 09:00 04/19/24 08:30 Aspirin 81 Mg Enteric Tablet PO 81 mg DAILY KAJAL Administration Dextrose 12.5 gm 04/14/24 16:42 Dextrose 50% 25 Gm/50 Ml Syringe IV PUSH PRN PRN Hypoglycemia Protocol Empagliflozin 25 mg 04/17/24 09:00 04/19/24 08:30 Empagliflozin 25 Mg Tablet PO 25 mg DAILY KAJAL Administration Enoxaparin Sodium 40 mg 04/15/24 09:00 04/19/24 08:30 Enoxaparin 40 Mg/0.4 Ml Syringe SUB-Q 40 mg DAILY KAJAL Administration Famotidine 20 mg 04/14/24 21:00 04/19/24 08:30 Famotidine 20 Mg/2 Ml Vial IV PUSH 20 mg Q12HR KAJAL Administration Glucagon 1 mg 04/14/24 16:42 Glucagon For Inj 1 Mg Vial IM PRN PRN Hypoglycemia Protocol Glucose 15 gm 04/14/24 16:42 Glucose Oral Gel 15 Gm Of Glucse In 37.5 Gm Tube PO PRN PRN Hypoglycemia Protocol Piperacillin/Tazobactam/Dextrose 3.375 gm in 50 mls @ 100 mls/hr 04/14/24 19:00 04/19/24 13:00 Zosyn 3.375 Gm/Ns 50 Ml IVPB 100 mls/hr Q6HR KAJAL Administration Dextrose 1,000 mls @ 100 mls/hr 04/14/24 16:42 04/15/24 22:05 Dextrose 5% 1,000 Ml IVPB Infused PRN PRN Infusion Hypoglycemia Protocol Ibuprofen 800 mg in 200 mls @ 400 mls/hr 04/18/24 14:09 04/18/24 22:38 Caldolor 800 Mg/200 Ml IVPB 400 mls/hr Q6H PRN Admin
--- NOTE | 2024-05-02 08:59 | PM.DS ---
DS: Admitting Diagnosis Discharge Date 04/19/24 Admitting Diagnosis Acute diverticulitis with abscess-abscesses are small and typically do resolve with only antibiotic therapy. Plan is for bowel rest, IV analgesics, broad-spectrum antibiotics. I explained that typically, the diverticulitis does resolve without surgical treatment. However, possibility of abscess drainage or even surgery during the acute infection exist. Should surgery be required, it often involves placement of a colostomy or ileostomy. All questions were answered. Continue inpatient care. Weight loss due to medication Hyperglycemia, [id number] diabetes DS: Discharge Diagnosis Discharge Diagnosis (1) Diverticulitis of large intestine with abscess without bleeding: Code(s): K57.20 - Diverticulitis of large intestine with perforation and abscess without bleeding Status: Acute (2) Weight loss due to medication: Code(s): R63.4 - Abnormal weight loss; T50.905A - Adverse effect of unspecified drugs, medicaments and biological substances, initial encounter Status: Chronic Assessment and Plan: Patient admitted 04/14/2024 and discharged 04/19/2024 (3) Type 2 diabetes mellitus: Qualifiers: Diabetes mellitus fci insulin use: without paleology teacher use Diabetes mellitus complication status: without complication Qualified Code(s): E11.9 - Type 2 diabetes mellitus without complications Code(s): E11.9 - Type 2 diabetes mellitus without complications Status: Chronic DS: Summary Hospital Course Hospital Course: Patient presented to the emergency room on 04/14/2024 and was diagnosed with acute diverticulitis with abscess. This was his 3rd admission for diverticulitis. The most recent admission prior to this was 3 years ago. Patient had a colonoscopy 8 years ago which was negative. He was admitted and placed on bowel rest with analgesics and Zosyn IV antibiotics. Hospitalist saw the patient in consultation for medical management. He has a history of diabetes but his hemoglobin A1c was 6.5. During the course of his stay, he initially had quite a bit of abdominal pain and tenderness. This gradually improved and on hospital day 3., he was started on clear liquids. He tolerated these well and was advanced to low-fiber diet. Low-fiber diet was explained to the patient as plans were for him to go home on a low-fiber diet. In the evening of hospital day 5. He developed right lower quadrant abdominal pain. His white blood cell count increased to 10,400. The pain had resolved by the morning of 04/19/2024. He had a CT scan with IV contrast of the abdomen pelvis on 04/19/2024. This showed no new abscesses or evidence of progression of the diverticulitis. He was feeling well and desired to be discharged. He was discharged on 04/19/2024 on a low-fiber diet and with Augmentin 875 p.o. b.i.d. for 7 more days. Status at Discharge Functional status at discharge: independent ambulation Overall status at discharge: patient is progressing back to baseline Time Spent with Patient Time attestation: Total time spent providing and/or coordinating discharge services: Time spent: Less than 30 minutes Discharge Plan Discharge Attending physician on discharge: Rashaad Murray Consulting providers: Tuyet Tovar; Elicia Krishnan; Aneesh Ramey; Rafael Menard V.; Polly Melendrez; Diann Godinez Discharging Clinician: Rashaad Murray Anticipated Discharge Date/Time: 04/19/24 15:00 Patient Disposition: Home, Self-Care Activity: no straining and as tolerated Diet: low fiber Discharge Instructions: Continue a low fiber diet x 2 weeks and then you may switch to a high fiber diet. Follow-up with Dr. Murray on 04/30/24. Our office will schedule the appointment and call you with the confirmed date/time. Call sooner if needed. No vigorous activity or heavy lifting x 1 week. Take Tylenol or Ibuprofen as needed
== END 2024-04-19 17:22 | disposition home or self-care (01) | DRG 392 ==
LOC: ANHED 11:22 → ANH3MEDSUR 15:28
PROVIDERS: Nurse Practitioner Family; Physician Assistant; Student in an Organized Health Care Education/Training Program; Admitting Provider Surgery; Emergency Provider Student in an Organized Health Care Education/Training Program; PCP Internal Medicine; Visit Provider Surgery
DX: K57.20 Diverticulitis of large intestine with perforation and abscess without bleeding (principal); K21.9 Gastro-esophageal reflux disease without esophagitis; E78.5 Hyperlipidemia, unspecified; M19.012 Primary osteoarthritis, left shoulder; M19.011 Primary osteoarthritis, right shoulder; F41.9 Anxiety disorder, unspecified; Z86.73 Personal history of transient ischemic attack (TIA), and cerebral infarction without residual deficits; Z80.0 Family history of malignant neoplasm of digestive organs; Z79.624 Long term (current) use of inhibitors of nucleotide synthesis
CPT/HCPCS: 36415; 74177; 80048; 80053; 81001; 82948; 83036; 83605; 83690; 83735; 85025; 85027; 96361; 96365; 96372; 96375; 96376; 99285; A9270; G0378; J1170; J1650; J1741; J2270; J2543; J7030; J7070; J7120; J7121; Q9967

== ENCOUNTER 2024-04-29 13:55 | Observation (INO) | payer OTHER, SELFPAY ==
[2024-04-29] VITALS (7 sets, daily range): BP systolic 112–131; BP diastolic 80–94; PULSE 71–98; RESP 17–22; TEMP 36.3–37.2; O2SAT 96–100
--- NOTE | ~2024-04-29 | CT_ITS ---
EXAMINATION: CT abdomen pelvis w con DATE: 04/29/2024 16:11 INDICATION: Diverticulitis, abscess follow-up TECHNIQUE: Computed tomography (CT) of the abdomen and pelvis was performed with 100 CC Omnipaque 350 intravenous contrast. Automated exposure control and iterative reconstruction technique were employe d. Exam dose: 574.95 mGy-cm total exam DLP. COMPARISON: 04/19/2024 CT abdomen pelvis FINDINGS: Bilateral pulmonary calcified granulomas. Lung bases are clear of infiltrate or consolidati on. Heart size is within normal range. No pericardial or pleural effusion. The liver, gallbladder spleen, pancreas, bile ducts, pancreatic duct, adrenal glands and kidneys are unremarkable. There is atherosclerotic calcification but normal caliber of the abdominal aorta. Prostate enlargement calcifications. Moderate diffuse thickening of the urinary bladder wall likely d ue to prostatomegaly. Approximately 3 x 3.7 x 4.8 cm vertical thick-walled fluid and air collection consistent with diverti cular abscess is noted above the sigmoid colon, sandwiched between the 2 common iliac arteries. A smaller abscess is noted between the sigmoid colon and posterior roof of the urinary bladder. There are fluid levels of the colon. Normal appendix. No bowel obstruction. Small fat-containing left inguinal hernia. Very small fat-containing umbilical hernia. Degenerative changes of the thoracic and lumbar spine including degenerative disc disease at L5-S1, m oderately severe degenerative disease at L1-2. IMPRESSION: Little interval change of sigmoid diverticular abscesses since 04/19/2024 Reviewed, dictated and finalized at [facility] Reviewed, dictated and finalized at [facility]. IMPRESSION: Little interval change of sigmoid diverticular abscesses since 04/08
--- NOTE | 2024-04-29 14:55 | ECG_ITS ---
Test Date: 2024-04-29 15:55:27 Measurements Intervals [place] Rate: 90 P: 25 MD: 124 QRS: 24 QRSD: 89 T: 8 QT: 354 QTc: 435 Interpretive Statements SINUS RHYTHM NONSPECIFIC T-WAVE ABNORMALITY- INFERIOR LEADS BASELINE WANDER- V5 BORDERLINE ECG No previous ECG available for comparison Electronically Signed On 04-29-2024 19:28:20 CDT by Mike Ivory D.O.
--- NOTE | 2024-04-29 14:58 | ED.ABDPAIN ---
HPI - Abdominal Pain General Chief Complaint: Abdominal Pain Stated Complaint: nausea, abd pain Time Seen by Provider: 04/29/24 14:24 Source: patient Mode of arrival: ambulatory Limitations: no limitations History of Present Illness HPI narrative: Patient is a 59-year-old male who presents to the ER with abdominal pain. He endorses a recent hospitalization for diverticulitis. Patient reports he rode his bike 8 miles yesterday which he thinks may have aggravated the condition. Earlier today he has felt too tight and he thinks that may have aggravated his pain also. This morning he had a small bowel movement and endorses passing gas. Patient reports he is currently having nausea but has not vomited. He had a slice of breakfast pizza and a monster drink this morning around 10:00 a.m. and his pain seemed to increase after that. Patient also endorses rectal pain when he is sitting in a chair. He denies blood in his stool, chest pain, and shortness of breath. Related Data Home Medications Medication Instructions Recorded Confirmed aspirin 81 mg tablet,delayed 81 mg PO DAILY 02/20/20 04/29/24 release (Petra Low Dose Aspirin) cetirizine 10 mg tablet (Zyrtec) 10 mg PO DAILY PRN Allergy Symptoms 02/20/20 04/29/24 rosuvastatin 20 mg tablet 20 mg PO DAILY 02/20/20 04/29/24 empagliflozin 25 mg tablet 25 mg PO DAILY 04/14/24 04/29/24 (Jardiance) lisinopril 10 mg tablet 10 mg PO DAILY 04/14/24 04/29/24 tirzepatide 5 mg/0.5 mL See Rx Instructions .Route .COMPLEX 04/15/24 04/29/24 subcutaneous pen injector (Mounjaro) Allergies Allergy/AdvReac Type Severity Reaction Status Date / Time No Known Allergies Allergy Verified 04/29/24 18:36 Review of Systems Review of Systems: All systems reviewed & are unremarkable except as noted in HPI and below PMFSH Past Medical History Medical History Anxiety Cerebrovascular accident (~2016) With mild residual left-sided weakness. Diverticulitis 3 total flares Gastroesophageal reflux History of TIA (transient ischemic attack) Hyperlipidemia Hypogonadism in male Osteoarthritis of both shoulders Type 2 diabetes mellitus Surgical History Surgical History History of tonsillectomy (~1970) Family History Family History Father Acute myocardial infarction Diabetes mellitus Mother Diabetes mellitus Sibling Diabetes mellitus Sibling Diabetes mellitus Grandparent Colon cancer Social History Social History Social History: Surrogate medical decision maker: Carolyn Mathis, sibling. Code status: Full code. Smoking status: Never smoker Alcohol intake: never Drinks per week: 1 Substance use: never Substance use type: does not use Do You Feel Safe in your Home?: Yes Lack of Transportation: No Lack of Food: Never True Current Housing: I Have Housing Concerned About Future Housing: No Difficulty Paying Gas/Electric Bills: No Difficulty Paying for Meds: No Currently Unemployed: No Education: Don't Know Difficulty w/ Childcare or Family Care: No Additional living arrangements comments: Lives alone. Has 2 grown children. Spiritual care concerns: No Exam Narrative: GENERAL: Well appearing, well-nourished, non-toxic, in mild distress d/t pain. NECK: Supple. No adenopathy, no masses. RESPIRATORY: Airway patent, respirations nonlabored. Clear to auscultation bilaterally, no rales, rhonchi, wheezing. CARDIOVASCULAR: Regular rate and rhythm without murmurs, rubs, or gallops. Peripheral pulses 2+ and equal bilaterally. ABDOMINAL: Soft, tender lower quadrants, nondistended, no hepatosplenomegaly. Normoactive BS. MUSCULOSKELETAL: Moves all extremities. Strength/ROM intact without gross deformities. SKIN: Wa
[2024-04-29] MEDS: SODIUM CHLORIDE 0.9% IV 1,000 ML 999 ML IV CONT ×2 (15:33→20:20)
[2024-04-29 15:36] LABS: Basophils Absolute Auto 0.1 K/mm3 (0.0-0.1); Basophils Percent Auto 0.3 % (0.2-1.2); Eosinophils Absolute Auto 0.1 K/mm3 (0-0.3); Eosinophils Percent Auto 0.7 % (0-4.4); Hematocrit 43.1 % (42.0-52.0); Hemoglobin 14.3 g/dL (14.0-18.0); Immature Granulocyte Absolute 0.09 K/mm3 (0.00-0.031); Immature Granulocyte Percent A 0.5 % (0-0.5); Lymphocytes Absolute Auto 1.27 K/mm3 (0.9-3.2); Lymphocytes Percent Auto 6.7 % (18.3-44.2); Mean Corpuscular HGB Conc 33.2 g/dl (32-36); Mean Corpuscular Hemoglobin 29.9 pg (26-34); Mean Platelet Volume 10.1 fl (7.4-10.4); Monocytes Absolute Auto 1.1 K/mm3 (0.1-0.6); Monocytes Percent Auto 5.6 % (2.6-8.5); Neutrophils Absolute Auto 16.5 K/mm3 (1.3-6.7); Neutrophils Percent Auto 86.2 % (45.5-73.1); Platelet Count Result 325 k/mm3 (150-375); Red Blood Count 4.79 M/mm3 (4.6-6.20); Red Cell Distribution Width 14.3 % (11.5-14.5); White Blood Count 19.1 K/mm3 (4.5-10.0)
[2024-04-29] MEDS: FAMOTIDINE 20 MG/2 ML VIAL IV PUSH (15:37)
[2024-04-29] MEDS: PANTOPRAZOLE SODIUM IV 40 MG VIAL IV PUSH (15:39)
[2024-04-29 15:52] LABS: Lactic Acid Reflex 1.1 mmol/L (0.7-2.0)
[2024-04-29 15:54] LABS: Alanine Aminotransferase 28 U/L (6-50); Albumin Level 4.6 g/dL (3.5-5.1); Alkaline Phosphatase 131 U/L (38-126); Anion Gap 10 mmol/L (4-12); Aspartate Amino Transferase 42 U/L (17-59); Bilirubin,Total 0.5 mg/dL (0.2-1.3); Blood Urea Nitrogen 19 mg/dL (9-20); Calcium 9.4 mg/dL (8.4-10.2); Carbon Dioxide 20 mmol/L (22-30); Chloride 104 mmol/L (98-107); Estimated CRCL calculation 91 ml/min; Estimated Glomerular Filt Rate > 60; Glucose 126 mg/dL (65-110); Lipase 79 U/L (23-300); Potassium 3.6 mmol/L (3.4-5.0); Sodium 134 mmol/L (137-145)
[2024-04-29 16:04] LABS: Troponin I < 0.012 ng/mL (0.000-0.034)
[2024-04-29 16:13] LABS: Influenza A QL RT-PCR Negative (Negative); Influenza B QL RT-PCR Negative (Negative); RSV RNA, RT-PCR Negative (Negative); SARS-CoV-2 RNA PCR Negative (Negative)
[2024-04-29 16:20] LABS: INR 1.1
[2024-04-29 16:21] LABS: Partial Thromboplastin Time 36.1 Seconds (22.3-36.8)
[2024-04-29 16:35] LABS: CRP < 0.5 mg/dL (<1.0)
[2024-04-29] MEDS: PIPERACILLN/TAZ 3.375GM/NS50ML 3.375 GM/50 ML BAG IVPB (16:59)
[2024-04-29 17:03] LABS: Add Urine Microscopic? NO; Appearance Urine Clear (Clear); Bilirubin Urine Negative (Negative); Blood Urine Negative (Negative); Color Urine Yellow (Yellow); Glucose Urine UA Negative (Negative); Ketones Urine Negative (Negative); Leukocyte Esterase Ur Negative LEU/UL (Negative); Nitrate Urine Negative (Negative); Protein Urine Negative (Negative); Specific Grav Ur > 1.045 (1.001-1.035); Urobilinogen Urine 0.2 mg/dL (<2.0)
[2024-04-29] MEDS: MORPHINE SULFATE (*CRX) 2 MG/ML INJ IV PUSH (17:45)
--- NOTE | 2024-04-29 18:36 | ADMGEN ---
This patient, Cole Nur, was admitted to 3 [facility] Surg Room 301-01. Patient/family oriented to hospital policies and general routines including ID bracelet, bed and alarms, visiting hours, pain management, procedures, bathroom and other care routines, personal items, smoking policy, room service/diet, and visiting hours. Information on how to activate the Rapid Response Team has been discussed. Patient/Family are encouraged to report perceived risks to care and to ask questions if they do not understand what they are told or what they should do.
--- NOTE | 2024-04-29 18:53 | PM.IMHP ---
H&P: HPI History of Present Illness Date/Time: 04/29/24 18:53 Chief Complaint: Nausea, Abdominal Pain Narrative: 59 y/o M presents here with recurrent/persistent nausea and abdominal pain with PMH of diverticulitis, CVA with mild residual left-sided weakness (2015), HLD, HTN, osteoarthritis, and type 2 diabetes. The patient presents here from home for further evaluation of current nausea and abdominal pain. Per chart review, the patient was initially seen at [place] [facility] on 04/14/2024 and was subsequently admitted for diverticulitis with abscess from 04/14/2024 to 04/19/2024. While inpatient patient was started on a clear liquid diet, Zosyn, and fluid resuscitated. Two small pericolonic abscesses were noted on CT, he remained stable on repeat imaging done towards the end of discharge. Patient was discharged with Augmentin prescription x7 days, encouraged to maintain a low-fiber diet, and plan for general surgery follow-up in 1 week. Patient reports despite compliance with oral antibiotics, nausea and abdominal pain have not resolved. Pain was previously controlled with Tylenol and now no longer resolving with med. He further describes the abdominal pain as lower abdominal, stabbing/cramping, radiating to lower back just above his tailbone, intermittent, aggravated by pressure to lower abdomen, and alleviated initially TYL. Denies associated fever, chills, or body aches. LBM was today, soft. Initial VS at presentation: 97.5 ? F, HR 98, RR 22, 122/94, and 98% on RA. ED workup showed: WBC 19.1, normal coags, sodium 134, creatinine 0.9 and GFR >60, glucose 126, initial troponin negative, CRP negative, and UA showed high specific gravity otherwise unremarkable. Viral PCR negative. CT of the abdomen/pelvis showed little interval change of the sigmoid diverticular abscesses since 04/19/2024. Review of Systems Review of Systems: All systems reviewed & are unremarkable except as noted in HPI and below PMFSH Past Medical History Medical History (Updated 04/29/24 @ 20:16 by Andreina Garrido APRN) Anxiety Cerebrovascular accident (~2015) With mild residual left-sided weakness. Diverticulitis 3 total flares Gastroesophageal reflux History of TIA (transient ischemic attack) Hyperlipidemia Hypogonadism in male Osteoarthritis of both shoulders Type 2 diabetes mellitus Surgical History Surgical History History of tonsillectomy (~1970) Family History Family History Father Acute myocardial infarction Diabetes mellitus Mother Diabetes mellitus Sibling Diabetes mellitus Sibling Diabetes mellitus Grandparent Colon cancer Social History Social History Social History: Surrogate medical decision maker: Carolyn Mathis, sibling. Code status: Full code. Smoking status: Never smoker Alcohol intake: never Drinks per week: 1 Substance use: never Substance use type: does not use Do You Feel Safe in your Home?: Yes Lack of Transportation: No Lack of Food: Never True Current Housing: I Have Housing Concerned About Future Housing: No Difficulty Paying Gas/Electric Bills: No Difficulty Paying for Meds: No Currently Unemployed: No Education: Don't Know Difficulty w/ Childcare or Family Care: No Additional living arrangements comments: Lives alone. Has 2 grown children. Spiritual care concerns: No Meds Home Medications and Allergies Home Medications Medication Instructions Recorded Confirmed Type aspirin 81 mg tablet,delayed 81 mg PO DAILY 02/20/20 04/29/24 History release (Petra Low Dose Aspirin) cetirizine 10 mg tablet (Zyrtec) 10 mg PO DAILY PRN Allergy Symptoms 02/20/20 04/29/24 History rosuvastatin 20 mg tablet 20 mg PO DAILY 02/20/20 04/29/24 History acetaminophen 325 mg tablet (Mapap 650 mg PO Q6H P
[2024-04-29] MEDS: MEROPENEM 1 GM/NS 100 ML 1 GM/100 ML BAG IVPB (20:23)
[2024-04-29 21:10] LABS: Glucose Point of Care 103 mg/dl (65-105)
[2024-04-29] MEDS: ACETAMINOPHEN 500 MG TABLET 1000 MG PO (21:26)
[2024-04-30 05:27] VITALS: BP 111/72; PULSE 80; RESP 18; TEMP 36.4; O2SAT 99
[2024-04-30] MEDS: MEROPENEM 1 GM/NS 100 ML 1 GM/100 ML BAG IVPB ×3 (06:31→22:04)
[2024-04-30 06:51] LABS: Basophils Percent Auto 0.3 % (0.2-1.2); Eosinophils Absolute Auto 0.2 K/mm3 (0-0.3); Eosinophils Percent Auto 1.5 % (0-4.4); Hematocrit 39.4 % (42.0-52.0); Hemoglobin 12.6 g/dL (14.0-18.0); Immature Granulocyte Absolute 0.06 K/mm3 (0.00-0.031); Immature Granulocyte Percent A 0.5 % (0-0.5); Lymphocytes Absolute Auto 1.38 K/mm3 (0.9-3.2); Lymphocytes Percent Auto 12.6 % (18.3-44.2); Mean Corpuscular Hemoglobin 29.5 pg (26-34); Mean Corpuscular Volume 92.3 fl (80-100); Mean Platelet Volume 10.5 fl (7.4-10.4); Monocytes Absolute Auto 0.7 K/mm3 (0.1-0.6); Monocytes Percent Auto 5.9 % (2.6-8.5); Neutrophils Absolute Auto 8.7 K/mm3 (1.3-6.7); Neutrophils Percent Auto 79.2 % (45.5-73.1); Platelet Count Result 282 k/mm3 (150-375); Red Blood Count 4.27 M/mm3 (4.6-6.20); Red Cell Distribution Width 14.5 % (11.5-14.5)
[2024-04-30 07:01] LABS: Alanine Aminotransferase 19 U/L (6-50); Albumin Level 3.7 g/dL (3.5-5.1); Alkaline Phosphatase 95 U/L (38-126); Anion Gap 7 mmol/L (4-12); Aspartate Amino Transferase 27 U/L (17-59); Bilirubin,Total 0.6 mg/dL (0.2-1.3); Blood Urea Nitrogen 15 mg/dL (9-20); Calcium 8.5 mg/dL (8.4-10.2); Carbon Dioxide 24 mmol/L (22-30); Chloride 105 mmol/L (98-107); Estimated CRCL calculation 91 ml/min; Estimated Glomerular Filt Rate > 60; Glucose 108 mg/dL (65-110); Sodium 136 mmol/L (137-145)
--- NOTE | 2024-04-30 07:26 | PM.IMPN ---
Progress Note: A&P Assessment and Plan (1) Sepsis: Qualifiers: Sepsis acute organ dysfunction status: without acute organ dysfunction Sepsis type: sepsis due to unspecified organism Qualified Code(s): A41.9 - Sepsis, unspecified organism Code(s): A41.9 - Sepsis, unspecified organism Status: Acute Assessment and Plan: Meets SIRS criteria: Respiratory rate, WBC. No hypoxia or hypotension. - lactic acid: 1.1 - 30 mL/kg = 2500, initially given 2L. - suspected source: diverticular abscesses of the sigmoid colon - started on Zosyn, will exchange to single agent with meropenem given previous failed treatment with Zosyn/high risk given abscess x2 present. - blood cultures drawn on 04/29: pending - UA showed high specific gravity, otherwise unremarkable - monitor hemodynamic stability (2) Colonic diverticular abscess: Code(s): K57.20 - Diverticulitis of large intestine with perforation and abscess without bleeding Status: Acute Assessment and Plan: Patient recently admitted from 04/14-04/19 for diverticulitis with abscess. He was started on zosyn during admission and DC on Augmentin x7 days. Despite compliance the abdominal pain and nausea never resolved and symptoms eventually worsened prompting him to return to the hospital. - CT abdomen/pelvis: 3 x 3.7 x 4.8 cm vertical thick-walled fluid and air collection consistent with diverticular abscess is noted above the sigmoid colon, sandwiched between the 2 common iliac arteries. A smaller abscess is noted between the sigmoid colon and posterior roof of the urinary bladder. Little interval change of sigmoid diverticular abscesses since 04/19/2024 - CT abdomen/pelvis (04/19/2024): There is wall thickening of the sigmoid colon. There is a 2.1 x 0.8 x 3.7 cm abscess abutting the sigmoid colon and bladder. There is a 4.7 x 2.1 x 2.9 cm abscess superior to the sigmoid colon abutting the common iliac arteries. - started on Zosyn on 04/29/2024, exchanged to Meropenem 1G q8h given previous failed treatment with Zosyn/high risk given abscess x2 present. - IV fluids, analgesics p.r.n., and antipyretics p.r.n. - monitor I&Os - trend WBC - serial abdominal exams - clear liquid diet, advance as tolerated to low fat diet - general surgery consulted continue conservative treatment at this time. He will likely require surgery at some point. (3) Type 2 diabetes mellitus: Qualifiers: Diabetes mellitus complication status: without complication Diabetes mellitus halfway insulin use: without termite exterminator helper use Qualified Code(s): E11.9 - Type 2 diabetes mellitus without complications Code(s): E11.9 - Type 2 diabetes mellitus without complications Status: Acute Assessment and Plan: - hypoglycemia protocol - POC blood glucose ACHS - home medication: Jardiance 25 mg daily - correct regimen ordered - low dose TIDWM - A1C 6.5% on 04/14/2024 (4) Hypertension: Code(s): I10 - Essential (primary) hypertension Status: Acute Assessment and Plan: Chronic, well controlled on home medication - continue lisinopril 10 mg daily - monitor Plan Diet: Clear liquid GI Prophylaxis: Not currently indicated DVT Prophylaxis: SCDs Lines: Peripheral Code Status: Full code Time Spent With Patient Time with patient: 25 - 35 minutes Subjective Date/time seen: 04/30/24 07:26 Interval history: 59 y/o M presents here with recurrent/persistent nausea and abdominal pain with PMH of diverticulitis, CVA with mild residual left-sided weakness (2015), HLD, HTN, osteoarthritis, and type 2 diabetes. Patient is pleasant lying comfortably in bed. He states that his pain is well controlled at this time. He continues to endorse lower abdominal pain with occasional stabbing. This is well treated with tylenol. Patient denies nausea/vomiting. Patient was evaluated by surgery. Plan is to continue conservative treatment
[2024-04-30 07:31] LABS: Glucose Point of Care 105 mg/dl (65-105)
[2024-04-30] MEDS: EMPAGLIFLOZIN 25 MG TABLET PO (07:59)
[2024-04-30] MEDS: ASPIRIN 81 MG ENTERIC TABLET PO (08:00)
[2024-04-30] MEDS: ROSUVASTATIN 20 MG TABLET PO (08:00)
[2024-04-30] MEDS: lisinopriL 10 MG TABLET PO (08:01)
[2024-04-30] MEDS: ACETAMINOPHEN 500 MG TABLET 1000 MG PO ×2 (09:39→17:33)
--- NOTE | 2024-04-30 10:43 | PM.CNGS ---
Assessment and Plan Assessment and plan (1) Colonic diverticular abscess: Code(s): K57.20 - Diverticulitis of large intestine with perforation and abscess without bleeding Status: Acute Assessment and Plan: Patient returned with increased lower abdominal pain after activity this weekend. His repeat CT scan was nearly unchanged with still two small perisigmoid fluid collections. We would recommend to continue with conservative measures. He is currently on a clear liquid diet. Continue IV antibiotics. Will repeat labs and exam again tomorrow. He will likely require surgery at some point, but we will again try to get him through this acute phase with nonoperative management. (2) Type 2 diabetes mellitus: Qualifiers: Diabetes mellitus complication status: without complication Diabetes mellitus wire bender hand insulin use: without alf use Qualified Code(s): E11.9 - Type 2 diabetes mellitus without complications Code(s): E11.9 - Type 2 diabetes mellitus without complications Status: Acute Plan I have discussed the patient's case and plan of care with Dr. Murray. Thank you for allowing us to see the patient in consultation and we will continue to follow along with you. History of Present Illness Consult details Consult date: 04/30/24 Reason for consult: other (Diverticulitis) Requesting physician: Allegra Pacheco APRN Narrative: This is a 59-year-old man who is known to our service from a recent hospitalization for diverticulitis with abscess. He was admitted from 04/14/24 - 04/19/24 and treated with IV antibiotics. He was discharged on oral antibiotics, which he took as prescribed and finished 4 days ago. He felt really good by the weekend and was not having any abdominal pain. He decided to go for an 8.5 mile bike ride on Tuesday. After his ride, he noticed some mild pain in his lower abdomen, mostly in the LLQ and suprapubic area. He took Tylenol and felt better by the next morning. He was wearing a tight belt during taoism yesterday and noticed very mild abdominal pain again in the same location. He loosened his belt without much relief. He then developed nausea and was concerned he may have aggravated something with his diverticulitis, therefore he came back to the ER for evaluation. Denies any vomiting, chills, or fever. Labs showed his WBC count was 19,100 and it was 10,400 before discharge on 04/19/24. CT scan of the abdomen and pelvis showed little interval change of sigmoid diverticular abscesses since his last CT scan on 04/19. One fluid collection is above the sigmoid and sandwiched between the 2 common iliac arteries measuring 3 x 3.7 x 4.8 cm and the other smaller fluid collection is between the sigmoid colon and posterior roof of the urinary bladder. He was admitted in this setting and now seen in surgical consultation. He is currently on IV Meropenem and on a clear liquid diet. He was actually scheduled for his first outpatient follow-up today with Dr. Murray in our office. He reports feeling better this morning. His nausea subsided and he only has very slight pain in the LLQ and RLQ. Review of Systems Review of Systems: All systems reviewed & are unremarkable except as noted in HPI and below PMFSH Past Medical History Medical History Anxiety Cerebrovascular accident (~2015) With mild residual left-sided weakness. Diverticulitis 3 total flares Gastroesophageal reflux History of TIA (transient ischemic attack) Hyperlipidemia Hypogonadism in male Osteoarthritis of both shoulders Type 2 diabetes mellitus Surgical History Surgical History History of tonsillectomy (~1969) Family History Family History Father Acute myocardial infarction Diabetes mellitus Mother Diabetes mellitus Sibling Diabetes mellitus Sibling Diabetes melli
[2024-04-30 11:27] LABS: Glucose Point of Care 116 mg/dl (65-105)
[2024-04-30 14:00] VITALS: BP 124/84; PULSE 83; RESP 18; TEMP 36.6; O2SAT 98
[2024-04-30 16:27] LABS: Glucose Point of Care 89 mg/dl (65-105)
[2024-04-30 22:00] VITALS: BP 106/69; PULSE 88; RESP 12; TEMP 36.5; O2SAT 95
[2024-04-30 22:10] LABS: Glucose Point of Care 96 mg/dl (65-105)
[2024-05-01 05:57] VITALS: BP 114/82; PULSE 87; RESP 12; TEMP 36.8; O2SAT 96
[2024-05-01] MEDS: MEROPENEM 1 GM/NS 100 ML 1 GM/100 ML BAG IVPB ×2 (06:09→13:00)
[2024-05-01 06:30] LABS: Hematocrit 43.3 % (42.0-52.0); Hemoglobin 13.9 g/dL (14.0-18.0); Mean Corpuscular HGB Conc 32.1 g/dl (32-36); Mean Corpuscular Hemoglobin 29.4 pg (26-34); Mean Corpuscular Volume 91.7 fl (80-100); Mean Platelet Volume 10.4 fl (7.4-10.4); Platelet Count Result 279 k/mm3 (150-375); Red Blood Count 4.72 M/mm3 (4.6-6.20); Red Cell Distribution Width 14.1 % (11.5-14.5); White Blood Count 11.4 K/mm3 (4.5-10.0)
[2024-05-01 06:41] LABS: Anion Gap 10 mmol/L (4-12); Blood Urea Nitrogen 10 mg/dL (9-20); Calcium 9.3 mg/dL (8.4-10.2); Carbon Dioxide 26 mmol/L (22-30); Chloride 101 mmol/L (98-107); Estimated CRCL calculation 76 ml/min; Estimated Glomerular Filt Rate > 60; Glucose 104 mg/dL (65-110); Potassium 3.8 mmol/L (3.4-5.0); Sodium 137 mmol/L (137-145)
[2024-05-01 07:46] LABS: Glucose Point of Care 103 mg/dl (65-105)
[2024-05-01] MEDS: lisinopriL 10 MG TABLET PO (07:54)
[2024-05-01] MEDS: ASPIRIN 81 MG ENTERIC TABLET PO (07:54)
[2024-05-01] MEDS: LORATADINE 10 MG TABLET PO (07:54)
[2024-05-01] MEDS: EMPAGLIFLOZIN 25 MG TABLET PO (07:54)
[2024-05-01] MEDS: ROSUVASTATIN 20 MG TABLET PO (07:54)
[2024-05-01] MEDS: ACETAMINOPHEN 500 MG TABLET 1000 MG PO (07:56)
[2024-05-01 11:12] LABS: Glucose Point of Care 160 mg/dl (65-105)
--- NOTE | 2024-05-01 11:36 | PM.PNGS ---
Progress Note: A&P Assessment and Plan (1) Diverticulitis of large intestine with abscess without bleeding: Code(s): K57.20 - Diverticulitis of large intestine with perforation and abscess without bleeding Status: Acute Assessment and Plan: Not sure if this was a recurrence of his diverticulitis or a consequence of his 8 mi bike ride that proceeded his present illness. He tells me today that if he did not feel nauseated, he is not sure he would have come to the emergency room. He is still having pain but abdomen is benign. Okay with me to discharge. Will prescribe ciprofloxacin and clindamycin for 1 week. I will see him in the office on May 10. He will need to call to make that appointment. Subjective Subjective Date/Time Seen: 05/01/24 11:36 Patient reports: feels better, pain is less (Taking only some oral Tylenol), tolerating a regular diet, voiding w/o difficulty, flatus, bowel movement and afebrile Review of Systems Review of Systems: All systems reviewed & are unremarkable except as noted in HPI and below (HPI) Exam Const: General: cooperative, comfortable, no acute distress, alert and awake Orientation/consciousness: patient oriented x3 GI: Inspection: normal to inspection, non-distended, no scars and no visible herniation GI Palp: Yes Soft to palpation, No Tenderness to palpation present (GI), No Guarding due to palpation present (GI), No Hernia present, No Palpable mass present and No Rebound tenderness present Auscultation: normal bowel sounds Neuro: General: patient oriented x3 and no focal motor deficits Extrem: General: no calf tenderness and no edema Psych: Affect: normal affect Insight: Good insight present (Psych) Judgement: Good judgement present (Psych) Objective Data Vital Signs Vital Signs: Vital Signs - 24 hr 04/30/24 14:00 04/30/24 22:00 05/01/24 05:57 Temperature 36.6 C 36.5 C 36.8 C Pulse Rate 83 88 87 Respiratory Rate 18 12 12 Blood Pressure 124/84 106/69 114/82 Pulse Oximetry 98 95 96 Oxygen Delivery 05/01/24 08:00 Temperature Pulse Rate Respiratory Rate Blood Pressure Pulse Oximetry Oxygen Delivery Room Air Intake/Output Intake/Output: Intake & Output 04/28/24 04/29/24 04/30/24 05/01/24 23:59 23:59 23:59 23:59 Intake Total 1150 1364 850 Balance 1150 1364 850 Meds/Results Medications: Active Medications Generic Name Dose Route Start Last Admin Trade Name Abran PRN Reason Stop Dose Admin Acetaminophen 1,000 mg 04/29/24 19:16 05/01/24 07:56 Acetaminophen 500 Mg Tablet PO 1,000 mg Q6H PRN Administration Mild Pain (1-3) or Fever Aspirin 81 mg 04/30/24 09:00 05/01/24 07:54 Aspirin 81 Mg Enteric Tablet PO 81 mg DAILY KAJAL Administration Dextrose 12.5 gm 04/29/24 20:16 Dextrose 50% 25 Gm/50 Ml Syringe IV PUSH PRN PRN Hypoglycemia Protocol Empagliflozin 25 mg 04/30/24 09:00 05/01/24 07:54 Empagliflozin 25 Mg Tablet PO 25 mg DAILY KAJAL Administration Glucagon 1 mg 04/29/24 20:16 Glucagon For Inj 1 Mg Vial IM PRN PRN Hypoglycemia Protocol Glucose 15 gm 04/29/24 20:16 Glucose Oral Gel 15 Gm Of Glucse In 37.5 Gm Tube PO PRN PRN Hypoglycemia Protocol Meropenem 1 gm in 100 mls @ 200 mls/hr 04/29/24 20:00 05/01/24 06:09 IVPB 200 mls/hr Q8HR KAJAL Administration Dextrose 1,000 mls @ 100 mls/hr 04/29/24 20:16 Dextrose 5% 1,000 Ml IVPB PRN PRN Hypoglycemia Protocol Insulin Aspart 2 - 5 units 04/30/24 08:00 05/01/24 11:13 Insulin Aspart (*Bkc) 100 Units/Ml SUB-Q Not Given TIDWM KAJAL Protocol Lisinopril 10 mg 04/30/24 09:00 05/01/24 07:54 Lisinopril 10 Mg Tablet PO 10 mg DAILY KAJAL Administration Loratadine 10 mg 04/29/24 20:20 05/01/24 07:54 Loratadine 10 Mg Tablet PO 10 mg DAILY PRN Administration Allergy Symptoms Morphine Sulfate 2 mg 04/29/24 17
[2024-05-01 14:00] VITALS: BP 113/79; PULSE 92; RESP 24; TEMP 36.3; O2SAT 98
--- NOTE | 2024-05-01 14:18 | PM.DS ---
DS: Admitting Diagnosis Discharge Date 05/01/2024 Admitting Diagnosis sepsis colonic diverticular abscess type 2 DM hypertension DS: Discharge Diagnosis Discharge Diagnosis (1) Sepsis: Qualifiers: Sepsis acute organ dysfunction status: without acute organ dysfunction Sepsis type: sepsis due to unspecified organism Qualified Code(s): A41.9 - Sepsis, unspecified organism Code(s): A41.9 - Sepsis, unspecified organism Status: Acute (2) Colonic diverticular abscess: Code(s): K57.20 - Diverticulitis of large intestine with perforation and abscess without bleeding Status: Acute (3) Type 2 diabetes mellitus: Qualifiers: Diabetes mellitus complication status: without complication Diabetes mellitus group home insulin use: without intermodal owner operator truck driver use Qualified Code(s): E11.9 - Type 2 diabetes mellitus without complications Code(s): E11.9 - Type 2 diabetes mellitus without complications Status: Acute (4) Hypertension: Code(s): I10 - Essential (primary) hypertension Status: Acute DS: Summary Hospital Course Reason for hospitalization: sepsis colonic diverticular abscess type 2 DM hypertension Hospital Course: 59 y/o M presents here with recurrent/persistent nausea and abdominal pain with PMH of diverticulitis, CVA with mild residual left-sided weakness (2015), HLD, HTN, osteoarthritis, and type 2 diabetes. Patient recently admitted from 04/14-04/19 for diverticulitis with abscess. He was started on zosyn during admission and DC on Augmentin x7 days. Despite compliance the abdominal pain and nausea never resolved and symptoms eventually worsened prompting him to return to the hospital. On admission patient was meeting sirs criteria with RR and WBC. He was given 2 L bolus in the ED and started on IV antibiotics. A CT abdomen/pelvis showed 3 x 3.7 x 4.8 cm vertical thick-walled fluid and air collection consistent with diverticular abscess is noted above the sigmoid colon, sandwiched between the 2 common iliac arteries, A smaller abscess is noted between the sigmoid colon and posterior roof of the urinary bladder. Little interval change of sigmoid diverticular abscesses since 04/19/2024. General surgery was consulted and plan for continued medical management with plan to follow outpatient for potential surgery. Patient evaluated by surgery today and is okay to discharge at this time on antibiotics with plan to see him in the office on May 10. Prior to discharge patient is tolerating his diet well. He has slight abdominal discomfort that is well controlled with Tylenol. He denies chest pain, shortness of breath, nausea/vomiting. Patient discharged home in stable condition on antibiotics. He is to follow up with his PCP in 1 week and surgery as scheduled. Status at Discharge Functional status at discharge: independent ambulation Time Spent with Patient Time attestation: Total time spent providing and/or coordinating discharge services: Time spent: Greater than 30 minutes Exam Narrative: AF HR 92 RR 24 Spo2 98 BP 113/79 General: male in no acute respiratory distress who is nontoxic appearing, lying semi recumbent in bed. HEENT: Normocephalic. Atraumatic. Extraocular movement intact. Sclera clear and anicteric. Chest: Lungs are clear to auscultation bilaterally. No wheezes or crackles. CV: Heart was regular rate and rhythm. S1/S2. No murmurs, gallops, or rubs. Abd: Abdomen was soft. Mild tenderness to palpation of the lower abdomen. Nondistended. Positive bowel sounds. No organomegaly or masses. DS: Data Data Completed and Pending Completed studies during hospitalization: abdomen/pelvis CT Labs on day of discharge: Labs from last 24 hours 05/01/24 05/01/24 05/01/24 11:09 07:43 06:00 WBC 11.4 H RBC 4.72 Hgb 13.9 L Hct 43.3 MCV 91.7 MCH 29.4 MCHC 32.1 RDW 14.1 Plt Count 279 MPV 10.4 Sodium 137 Potassium 3.8 Chloride 1
== END 2024-05-01 15:25 | disposition home or self-care (01) ==
LOC: ANHED 14:55 → ANH3MEDSUR 18:38
PROVIDERS: Emergency Medicine; Nurse Practitioner Family; Student in an Organized Health Care Education/Training Program; Admitting Provider Internal Medicine; Emergency Provider Registered Nurse; PCP Internal Medicine; Visit Provider Student in an Organized Health Care Education/Training Program
DX: A41.9 Sepsis, unspecified organism (principal); K57.20 Diverticulitis of large intestine with perforation and abscess without bleeding; E11.9 Type 2 diabetes mellitus without complications; E78.5 Hyperlipidemia, unspecified; K21.9 Gastro-esophageal reflux disease without esophagitis; F41.9 Anxiety disorder, unspecified; I69.354 Hemiplegia and hemiparesis following cerebral infarction affecting left non-dominant side; Z79.85 Long-term (current) use of injectable non-insulin antidiabetic drugs; Z79.84 Long term (current) use of oral hypoglycemic drugs; Z79.82 Long term (current) use of aspirin; Z20.822 Contact with and (suspected) exposure to COVID-19
CPT/HCPCS: 36415; 74177; 80048; 80053; 81003; 82948; 83605; 83690; 84484; 85025; 85027; 85610; 85730; 86140; 87040; 87637; 93005; 96361; 96365; 96367; 96375; 96376; 99285; A9270; G0378; J2185; J2270; J2470; J2543; J7030; Q9967

== ENCOUNTER 2024-06-18 06:01 | Day surgery (SDC) | payer OTHER, SELFPAY ==
[2024-05-14 07:59] VITALS: BMI 25.4
[2024-06-18] MEDS: LACTATED RINGERS 1,000 ML 150 ML IV CONT (06:55)
[2024-06-18 07:11] VITALS: BP 129/88; PULSE 72; RESP 18; TEMP 37; O2SAT 99
[2024-06-18 07:11] LABS: Glucose Point of Care 97 mg/dl (65-105)
--- NOTE | 2024-06-18 07:25 | P.PNAN_ITS ---
Anes - Initial Pre Proc Eval Procedure: Operation Date: 06/18/24 08:00 Proposed Procedures p Diagnostic Colonoscopy - Moe Milton DO Date/Time: 06/18/24 07:25 Surgeon: Moe Milton DO Pre Op Diagnosis: Diverticulosis with Abscess Patient Data Age: 59 Gender: M Height: 1.88 m Weight: 86.6 kg Last Vital Signs Temp 37.0 C 06/18/24 07:11 Pulse 72 06/18/24 07:11 Resp 18 06/18/24 07:11 BP 129/88 06/18/24 07:11 Pulse Ox 99 06/18/24 07:11 O2 Del Method Room Air 06/18/24 07:11 Allergies Allergy/AdvReac Type Severity Reaction Status Date / Time No Known Allergies Allergy Verified 06/01/24 12:49 Home Medications Medication Instructions Recorded Confirmed Type aspirin 81 mg tablet,delayed 81 mg PO DAILY 02/20/20 06/01/24 History release (Petra Low Dose Aspirin) cetirizine 10 mg tablet (Zyrtec) 10 mg PO DAILY PRN Allergy Symptoms 02/20/20 06/01/24 History rosuvastatin 20 mg tablet 20 mg PO DAILY 02/20/20 06/01/24 History empagliflozin 25 mg tablet 25 mg PO DAILY 04/14/24 06/01/24 History (Jardiance) lisinopril 10 mg tablet 10 mg PO DAILY 04/14/24 06/01/24 History tirzepatide 5 mg/0.5 mL See Rx Instructions .Route .COMPLEX 04/15/24 06/01/24 History subcutaneous pen injector (Mounjaro) Nexium 1 tab-cap PO DIRECTED 06/01/24 06/01/24 History multivitamin 1 tablet PO DAILY 06/01/24 06/01/24 History Laboratory Tests 06/18/24 07:05 POC Capillary Glucose 97 mg/dl (65-105) Patient hx anesthesia problems: none Family hx anesthesia problems: none Results Review: All pre-operative results and documents have been reviewed as part of the pre- operative evaluation. [facility] Past Medical History Medical History Anxiety Cerebrovascular accident (~2015) With mild residual left-sided weakness. Diverticulitis 3 total flares Gastroesophageal reflux History of TIA (transient ischemic attack) Hyperlipidemia Hypogonadism in male Osteoarthritis of both shoulders Type 2 diabetes mellitus Surgical History Surgical History History of tonsillectomy (~1970) Family History Family History Father Acute myocardial infarction Diabetes mellitus Mother Diabetes mellitus Sibling Diabetes mellitus Sibling Diabetes mellitus Grandparent Colon cancer Social History Social History Social History: Surrogate medical decision maker: Carolyn Mathis, sibling. Code status: Full code. Smoking status: Never smoker Alcohol intake: never Drinks per week: 1 Substance use: never Substance use type: does not use Do You Feel Safe in your Home?: Yes Lack of Transportation: No Lack of Food: Never True Current Housing: I Have Housing Concerned About Future Housing: No Difficulty Paying Gas/Electric Bills: No Difficulty Paying for Meds: No Currently Unemployed: No Education: Don't Know Difficulty w/ Childcare or Family Care: No Living arrangements: with family Additional living arrangements comments: Lives alone. Has 2 grown children. Spiritual care concerns: No Anes - Eval Final PreProcedure Day of Procedure 06/18/24 07:25 Patient weight: normal Heart: regular rate and rhythm Lungs: clear to auscultation Airway: Mallampati scale class II Neurological: alert and oriented Last oral intake: >/= 8 hours ASA classification: III Emergent: no Anesthetic plan: proceed Anesthesia type and monitoring: general GIVS and standard monitoring Results Review: All pre-operative results and documents have been reviewed as part of the pre- operative evaluation. Informed Consent: The patient's anesthetic plan and its attendant risks and benefits were discussed with the patient/family/POA. Questions were solicited and answers provided to the satisfaction of the patient/family/POA.
--- NOTE | 2024-06-18 08:08 | PM.IMHP ---
H&P: HPI History of Present Illness Date/Time: 06/18/24 08:08 Chief Complaint: diverticulitis Narrative: this is a 59-year-old man who presents for colonoscopy. His last colonoscopy was about 8 years ago. He was recently hospitalized for diverticulitis with abscess. He has recovered from this. He denies any hematochezia or melena. Has a grandfather who had colon cancer but no first degree relatives. Review of Systems Review of Systems: All systems reviewed & are unremarkable except as noted in HPI and below Constitutional: Constitutional: Denies chills, Denies fever(s), Denies headache(s) and Denies weight loss Eyes: Eyes: Denies change in vision ENT: Denies dizziness, Denies headache(s), Denies neck mass and Denies throat swelling Cardiovascular: Cardiovascular: Denies chest pain, Denies lightheadedness and Denies dyspnea Respiratory: Respiratory: Denies cough, Denies dyspnea and Denies wheezing Gastrointestinal: Gastrointestinal: Denies abdominal pain, Denies change in bowel habits, Denies nausea and Denies vomiting Genitourinary: Genitourinary: Denies hematuria and Denies dysuria Musculoskeletal: Musculoskeletal: Reports as per HPI Integumentary/Breasts: Skin/Breast: Reports as per HPI Neurologic: Denies dizziness and Denies headache(s) Allergic/Immunologic: Allergic/Immunologic: Denies throat swelling and Denies wheezing PMF Past Medical History Medical History Anxiety Cerebrovascular accident (~2016) With mild residual left-sided weakness. Diverticulitis 3 total flares Gastroesophageal reflux History of TIA (transient ischemic attack) Hyperlipidemia Hypogonadism in male Osteoarthritis of both shoulders Type 2 diabetes mellitus Surgical History Surgical History History of tonsillectomy (~1970) Family History Family History Father Acute myocardial infarction Diabetes mellitus Mother Diabetes mellitus Sibling Diabetes mellitus Sibling Diabetes mellitus Grandparent Colon cancer Social History Social History Social History: Surrogate medical decision maker: Carolyn Mathis, sibling. Code status: Full code. Smoking status: Never smoker Alcohol intake: never Drinks per week: 1 Substance use: never Substance use type: does not use Do You Feel Safe in your Home?: Yes Lack of Transportation: No Lack of Food: Never True Current Housing: I Have Housing Concerned About Future Housing: No Difficulty Paying Gas/Electric Bills: No Difficulty Paying for Meds: No Currently Unemployed: No Education: Don't Know Difficulty w/ Childcare or Family Care: No Living arrangements: with family Additional living arrangements comments: Lives alone. Has 2 grown children. Spiritual care concerns: No Meds Home Medications and Allergies Home Medications Medication Instructions Recorded Confirmed Type aspirin 81 mg tablet,delayed 81 mg PO DAILY 02/20/20 06/18/24 History release (Petra Low Dose Aspirin) cetirizine 10 mg tablet (Zyrtec) 10 mg PO DAILY PRN Allergy Symptoms 02/20/20 06/18/24 History rosuvastatin 20 mg tablet 20 mg PO DAILY 02/20/20 06/18/24 History empagliflozin 25 mg tablet 25 mg PO DAILY 04/14/24 06/18/24 History (Jardiance) lisinopril 10 mg tablet 10 mg PO DAILY 04/14/24 06/18/24 History tirzepatide 5 mg/0.5 mL See Rx Instructions .Route .COMPLEX 04/15/24 06/18/24 History subcutaneous pen injector (Mounjaro) Nexium 1 tab-cap PO DIRECTED 06/01/24 06/18/24 History multivitamin 1 tablet PO DAILY 06/01/24 06/18/24 History Allergies Allergy/AdvReac Type Severity Reaction Status Date / Time No Known Allergies Allergy Verified 06/18/24 07:29 Vital Signs Vital Signs - 24 hr 06/18/24 07:11 Temperature 98.6 F Pulse Rate 72 Respiratory Rate 18 Blood Pressure 129/88 Pulse Oximetry 99 Oxygen Delivery Room Air Exam Const: General: no acute distress and alert Orientation/consciousness: patient oriented x3 HENMT: Head: normocephalic and atraumatic Ears: hearing grossly normal bilaterally Face/Nose/Sinus: Normal nares present Mouth: Yes Normal oral and palatal mucosa present Eyes: Periorbital: periorbital findings normal Sclera: sclerae normal EOM: EOMs intact bilaterally Neck: Neck: normal visual inspection, no lymphadenopathy and trachea midline Chest: Chest palpation & inspection: normal inspection of the chest Resp: Effort & Inspection: normal respiratory effort Auscultation: clear to auscultation bilaterally Cardio: Jugular venous distension: no JVD Rate: regular rate Rhythm: regular rhythm Heart sounds: S1 normal heart sound present and S2 normal heart sound present Peripheral pulses: Peripheral pulses 2+ throughout GI: Inspection: normal to inspection GI Palp: Yes Soft to palpation, No Tenderness to palpation present (GI), No Guarding due to palpation present (GI) and No Rebound tenderness present Percussion: Yes normal to percussion Auscultation: normal bowel sounds : General: Yes no CVA tenderness Back/Spine/Pelvis: Back: no CVA tenderness Neuro: General: patient oriented x3, no focal motor deficits and CN's II-XI intact bilaterally Cognition (Neuro): normal cognition Speech: normal speech Motor exam (neuro): 5/5 motor strength present throughout Extrem: General: capillary refill normal and no clubbing, cyanosis or edema Assessment and Plan Assessment and plan (1) Diverticulitis: Code(s): K57.92 - Diverticulitis of intestine, part unspecified, without perforation or abscess without bleeding Status: Acute Assessment and Plan: I have recommended colonoscopy. I have discussed the procedure, risks, benefits, and alternatives. Questions were answered. Patient is agreeable to proceed.
[2024-06-18 08:30] VITALS: BP 113/79; PULSE 72; RESP 18; O2SAT 98
[2024-06-18 08:40] VITALS: BP 120/85; PULSE 65; RESP 15; O2SAT 100
[2024-06-18 08:50] VITALS: BP 134/85; PULSE 63; RESP 15; O2SAT 99
--- NOTE | 2024-06-18 09:12 | WPDANESPN ---
Anes - Prog Note Post-Op Date/Time: 06/18/24 09:12 Cardiovascular status: normal Respiratory status: normal Airway patency: baseline Mental status: baseline Post-Op hydration status: normal Vital Signs: Last Vital Signs Temp 37.0 C 06/18/24 07:11 Pulse 63 06/18/24 08:50 Resp 15 06/18/24 08:50 BP 134/85 06/18/24 08:50 Pulse Ox 99 06/18/24 08:50 O2 Del Method Room Air 06/18/24 08:50 Pain Score (VAS): 0/10 I/O: Intake & Output 06/17/24 06/18/24 06/18/24 23:59 07:59 15:59 Intake Total 600 Balance 600 06/18/24 07:05 POC Capillary Glucose 97 Patient Feedback: Patient satisfied with anesthetic care.
== END 2024-06-18 08:59 | disposition home or self-care (01) ==
PROVIDERS: Visit Provider Surgery
PROC: 0DJD8ZZ Inspection of Lower Intestinal Tract, Via Natural or Artificial Opening Endoscopic (ICD-10-PCS; CPT 45378; principal; 2024-06-18 08:00)
DX: K57.32 Diverticulitis of large intestine without perforation or abscess without bleeding (principal); K57.30 Diverticulosis of large intestine without perforation or abscess without bleeding
CPT/HCPCS: 45378